=== PATIENT | female | born 1940 | race Caucasian/White ===

== ENCOUNTER 2018-01-06 20:43 | Inpatient (IN) ==
[2018-01-06] MEDS ORDERED: 0.9 % SODIUM CHLORIDE 1,000 ML IV ONE (21:46)
[2018-01-06] MEDS ORDERED: DICYCLOMINE 20 MG TABLET PO ONE (22:12)
[2018-01-06] MEDS ORDERED: LACTATED RINGERS 1,000 ML IV ONE (22:23)
[2018-01-06 22:35] LABS: Basophils # (Auto) 0.2 K/mcL (0.0-0.3); Basophils % (Auto) 1.4 % (0.0-2.0); Eosinophils # (Auto) 0.2 K/mcL (0.0-0.7); Granulocytes % (Auto) 75.2 % (38.0-78.0); Lymphocytes # (Auto) 1.9 K/mcL (1.5-4.8); Mean Cell Volume 81.9 fL (80.0-100.0); Mean Corpuscular HGB Conc 32.1 g/dL (31.0-36.0); Mean Corpuscular Hemoglobin 26.3 pg (26.0-34.0); Monocytes # (Auto) 0.6 K/mcL (0.1-0.9); Monocytes % (Auto) 5.4 % (1.0-12.0); Platelet Count 337 K/mcL (140-440); RBC 5.06 M/mcL (4.00-5.20); Red Cell Distribution Width 14.3 % (11.5-14.5)
[2018-01-06 23:02] LABS: ALT/SGPT 7 U/l (0-40); Albumin 3.5 gm/dL (3.2-5.2); Albumin/Globulin Ratio 0.9 (1.0-2.3); Alkaline Phosphatase 76 U/L (39-117); Blood Urea Nitrogen 24 mg/dl (8-23)
--- NOTE | 2018-01-06 23:34 | Emergency Department Note ---
Nausea/Vomiting/Diarrhea HPI - General Chief complaint: Nausea/Vomiting/Diarrhea Stated complaint: diarrhea Time Seen by Provider: 01/06/18 20:59 Source: patient Mode of arrival: wheelchair Limitations: no limitations - History of Present Illness HPI Narrative: 77-year-old female comes in for diarrhea for the last week. Now for the last 2- 3 days is gotten worse having 3-5 episodes per day of watery stool. She was seen [address] russ here in the ER and tested for C. difficile which she has had 4 times in the past. Testing was negative but he placed her on vancomycin anyway because of her symptoms still sound like C. difficile. She is having diffuse abdominal pain and cramping with that. She is having difficulty staying hydrated. Last antibiotics were for diverticulitis episode and were finished about 10 days ago. She saw Dr. Siddharth Pennington 2 days ago when he advised to take dicyclomine for the cramping-this does help but the cramps come back when she stopped taking this medicine. Some nausea decreased appetite but no fever. Denies shortness of breath - Related Data Home Medications Medication Instructions Recorded Confirmed Ascorbate Calcium [Vitamin C] 500 mg PO DAILY 02/28/17 01/06/18 Gabapentin [Neurontin] 200 mg PO QHS 02/28/17 01/06/18 Meclizine HCl [Verticalm] 12.5 mg PO QIDP PRN 02/28/17 01/06/18 Venlafaxine [Effexor] 75 mg PO QHS 02/28/17 01/06/18 Verapamil HCl 80 mg PO DAILY 02/28/17 01/06/18 Omeprazole [PriLOSEC] 20 mg PO BIDAC 06/17/17 01/06/18 aspirin 81 mg tablet,delayed 81 mg PO QDAY 11/11/17 01/06/18 release [id number] See Label Instructions PO Q6H PRN 11/11/17 cholecalciferol (vitamin D3) 5,000 5,000 unit PO QDAY 11/11/17 01/06/18 unit capsule famotidine 20 mg tablet 20 mg PO QDAY 11/11/17 01/06/18 ferrous sulfate 325 mg (65 mg 325 mg PO QDAY tab 11/11/17 01/06/18 iron) tablet hydrocodone 10 mg-acetaminophen 1 tab PO .Q4-6H tab 11/11/17 01/06/18 325 mg tablet lecithin 1,200 mg capsule 1,200 mg PO BID cap 11/11/17 01/06/18 multivitamin with minerals 1 cap PO BID 11/11/17 01/06/18 omega 4-uvf-qqt-fish oil 1,000 mg 3 cap PO QDAY cap 11/11/17 01/06/18 (120 mg-180 mg) capsule omega-3 fatty acids-fish oil 1 cap PO QDAY 11/11/17 01/06/18 polyethylene glycol 3350 17 g PO QAM 11/11/17 01/06/18 propranolol ER 60 mg capsule,24 60 mg PO QDAY 11/11/17 01/06/18 hr,extended release pseudoephedrine HCl PO QDAY PRN 11/11/17 01/04/18 sucralfate 1 gram tablet 1 g PO QDAY tab 11/11/17 01/06/18 topiramate 200 mg tablet 100 mg PO BID 11/11/17 01/06/18 zoledronic nhfm-hbdpxzdu-nvdba IV .Annually 11/11/17 01/04/18 bismuth subsalicylate 1 dose PO ONCE PRN 12/21/17 01/06/18 imodium 4 mg PO ONCE PRN 12/21/17 01/06/18 Previous Rx's Medication Instructions Recorded Isosorbide Mononitrate [Imdur] 30 mg PO DAILY #30 tab.xl.24h 02/28/17 Nitroglycerin 0.4 mg SL Q5M PRN #25 tab.subl 02/28/17 hydrocortisone 2.5 % topical cream 1 applic MD QD-BID PRN #30 g 11/26/17 with perineal applicator ciprofloxacin 500 mg tablet 500 mg PO Q12H #30 tab 12/02/17 metronidazole 500 mg tablet 500 mg PO TID #40 tab 12/02/17 Banana Flakes/Tos [Banatrol Plus 1 each PO TID #90 powd.pack 01/02/18 Powder Packet] Vancomycin [Vancocin] 125 mg PO QID #90 cap 01/02/18 dicyclomine 20 mg tablet 20 mg PO QID #120 tab 01/06/18 Allergies Allergy/AdvReac Type Severity Reaction Status Date / Time ibuprofen Allergy Severe Unknown Verified 01/04/18 10:20 Latex, Natural Rubber Allergy Severe Rash Verified 01/04/18 10:20 Oxycodone Allergy Severe Unknown Verified 01/04/18 10:20 Penicillins Allergy Severe Hives Verified 01/04/18 10:20 adhesive tape Allergy Intermediate Rash Verified 01/04/18 10:20 codeine Allergy Intermediate Hives Verified 01/04/18 10:20 Sulfa (Sulfonamide Allergy Intermediate Hives Verified 01/04/18 10:20 Antibiotics) topiramate AdvReac Intermediate Seizure Verified 01/04/18 10:20 Review of Systems All systems ED: reviewed and negative except as stated. Past Medical History - Past Medical History Attestation: Yes: The following information was validated with the patient. [facility] Narrative: Medical History (Last Reviewed 01/06/18 @ 11:45 by Siddharth Pennington MD) Bilateral lower abdominal pain (Chronic) Iron deficiency anemia (Chronic) Pulmonary hypertension (Chronic) Terminal esophageal web (Chronic) Carotid artery stenosis (Chronic) Diarrhea (Chronic) Lower abdominal pain (Chronic) Wears dentures (Chronic) Microcytic anemia (Chronic) Wears glasses (Chronic) Diverticulosis of duodenum (Chronic) Acquired pyloric stricture (Chronic) Central chest pain (Chronic) Macular degeneration, bilateral (Chronic) Aneurysm of infrarenal abdominal aorta (Chronic) Coronary arteriosclerosis (Chronic) Seroma after procedure (Chronic) Acute kidney injury (Chronic) History of fracture of right ankle (Chronic ~2010) Chronic sinusitis (Chronic) Squamous cell carcinoma of chin (Chronic) Onychomycosis (Chronic) Other specified malignant neoplasm of skin of unspecified parts of face (Chronic ) Macular degeneration (Chronic) GERD (gastroesophageal reflux disease) (Chronic) Urge incontinence (Chronic) Subdural hemorrhage (Chronic) Acquired spondylolisthesis (Chronic) Depression (Chronic) Fatigue (Chronic) Essential tremor (Chronic) Sleep apnea (Chronic) Internal hemorrhoids (Chronic) Vertigo (Chronic) Dry skin (Chronic) Peripheral edema (Chronic) Other chronic sinusitis (Chronic) Rectal bleeding (Chronic) Migraine headache (Chronic) Cholangiectasis (Chronic) Anxiety (Chronic) Diverticulosis of colon without diverticulitis (Chronic) Schatzki's ring (Chronic) Pleurisy (Chronic) Osteoporosis (Chronic) Unspecified hereditary and idiopathic peripheral neuropathy (Chronic) Cervico-occipital neuralgia (Chronic) Chronic pain (Chronic) Chronic back pain (Chronic) Chronic neck pain (Chronic) Drug-induced constipation (Chronic) MCFP (current) use of opiate analgesic (Chronic) Alteration in comfort associated with pain (Chronic) Hypothyroidism (Chronic) Hyperlipidemia (Chronic) terminal gauger (current) use of aspirin (Chronic) Atrial fibrillation (Chronic) Abdominal aortic aneurysm without rupture (Chronic) Breast lump (Chronic) History of rheumatic fever (Chronic) History of lumbar fusion (Chronic) Rhinitis, allergic (Acute) Pharyngitis (Acute) Hip pain (Acute) Acute sinusitis (Acute) Chest pain of uncertain etiology (Acute) Left bundle branch block (LBBB) (Acute) Upper respiratory infection (Acute) Colitis due to Clostridium difficile (Acute) Bite by animal (Acute) Hemorrhoids (Acute) Lower gastrointestinal hemorrhage (Acute) Hypokalemia (Acute) Past Surgical History (Last Reviewed 01/06/18 @ 11:45 by Siddharth Pennington MD) History of appendectomy (Chronic) History of back surgery (Chronic 05/04/17) History of cataract surgery (Chronic) History of cholecystectomy (Chronic) History of colonoscopy (Chronic 01/12/15) History of lumbar discectomy (Chronic) History of nasal surgery (Chronic) History of open reduction and internal fixation (ORIF) procedure (Chronic ~2011) History of orthopedic surgery (Chronic ~2010) History of partial hysterectomy (Chronic) History of squamous cell carcinoma excision (Chronic ~2010) History of tonsillectomy and adenoidectomy (Chronic) Social History (Last Updated 01/06/18 @ 11:54 by Siddharth Pennington MD) No Social History Section defined Medical history: Reports: atrial fibrillation (paroxysmal - postop 2013 after hip replacement (single episode)), GERD, hypertension, migraine (chronic), thyroid disease, other (BRADYCARDIA (50-52); essential tremor. esophageal stricture, hemorrhoids, diverticulosis; abnl NM Myocard Perfusion (Spect) [facility] . AAA 3.[address] November 2016 Lina. Asymmetric BP R>L. Carotid art disease. C. difficile colitis recurrent Jun 2017.). Denies: cancer, coronary artery disease, DM, myocardial infarction Psychiatric history: Reports: depression BAR EXAMINER history: Reports: non-contributory Surgical history ED: Reports: other (Carpal tunnel syndrome on the left. Left hip surgery 2. back surgery x2) - Social History smoking status: Never smoker Alcohol use: Reports: None Drug use: Reports: none Physical Exam Fragile elderly female some acute distress secondary to abdominal cramping. Appears globally weak. At one point during exam she has to go the bathroom. Normocephalic atraumatic. Conjunctive are clear sclerae nonicteric. No nasal discharge or congestion. Oropharynx is with dry buccal mucosa. Posterior pharynx is clear. Neck is supple without lymphadenopathy thyromegaly or carotid bruit. Heart is regular rate and rhythm no murmur appreciated. Lungs are clear to auscultation bilaterally without wheezes rales rhonchi or respiratory distress. Abdomen is diffusely tender with loud bowel sounds. Some guarding. She is wearing hose so I do not see any edema. +2 radial pulse. She is somnolent but easily arousable able answer questions appropriately and cooperate for physical exam Limitations: no limitations Course Vital Signs Temperature 96.6 F L 01/06/18 20:44 Pulse Rate 82 01/06/18 20:44 Respiratory Rate 19 01/06/18 20:44 Blood Pressure 115/75 01/06/18 20:44 Pulse Oximetry (%) 96 01/06/18 20:44 Temperature 97.8 F 01/07/18 04:00 Pulse Rate 60 01/07/18 04:00 Respiratory Rate 20 01/07/18 04:00 Blood Pressure 120/48 01/07/18 04:00 Pulse Oximetry (%) 93 01/07/18 04:00 Nausea/Vomiting/Diarrhea - Lab Data Lab results reviewed: Yes I reviewed the patient's lab results. Result diagrams: 01/06/18 22:00 01/06/18 22:00 Lab Results 01/06/18 01/06/18 Range/Units 22:00 22:00 WBC 11.9 H (4.5-11.0) K/mcL RBC 5.06 (4.00-5.20) M/mcL Hgb 13.3 (12.0-15.0) g/dL Hct 41.4 (36.0-48.0) % MCV 81.9 (80.0-100.0) fL MCH 26.3 (26.0-34.0) pg MCHC 32.1 (31.0-36.0) g/dL RDW 14.3 (11.5-14.5) % Plt Count 337 (140-440) K/mcL MPV 9.6 (7.4-10.4) fL Gran % 75.2 (38.0-78.0) % Lymph % (Auto) 16.0 (15.5-49.0) % Page % (Auto) 5.4 (1.0-12.0) % Eos % (Auto) 2.0 (0.0-7.0) % Baso % (Auto) 1.4 (0.0-2.0) % Gran # 9.0 H (1.8-8.0) K/mcL Lymph # (Auto) 1.9 (1.5-4.8) K/mcL Page # (Auto) 0.6 (0.1-0.9) K/mcL Eos # (Auto) 0.2 (0.0-0.7) K/mcL Baso # (Auto) 0.2 (0.0-0.3) K/mcL Differential Comment Sodium 138 (133-145) mmol/L Potassium 3.3 (3.3-5.1) mmol/L Chloride 101 (96-108) mmol/L Carbon Dioxide 18 L (22-30) mmol/L Anion Gap 19.0 H (8-16) BUN 24 H (8-23) mg/dl Creatinine 1.5 H (0.6-1.1) mg/dl GFR Calculation 34 Glucose 99 (70-105) mg/dL Calcium 9.2 (8.6-10.4) mg/dl Total Bilirubin 0.2 (0.0-1.0) mg/dL AST 11 (0-37) U/l ALT 7 (0-40) U/l Alkaline Phosphatase 76 (39-117) U/L Total Protein 7.2 (5.9-8.4) gm/dL Albumin 3.5 (3.2-5.2) gm/dL Globulin 3.7 (2.2-3.7) gm/dL Albumin/Globulin Ratio 0.9 L (1.0-2.3) Disposition Pt seen by PULLEY MORTISER OPERATOR/PA only: No Clinical Impression: Clostridium difficile infection, Dehydration, Acute kidney injury Hypotension Qualifiers: Hypotension type: hypotension due to hypovolemia Qualified Code(s): I95.89 - Other hypotension Summary: After initial interview and exam I ordered laboratory. I did not order repeat scan of the belly or other imaging because she is had a recent abdominal CT which showed evidence of colitis on 01/01/2018 or 5 days ago. Further questioning it does not sound like she is picked up the vancomycin ordered by Dr. russ yet. She received Zofran and IV fluids C. difficile testing was positive this time which correlates with her CT scan from 5 days ago. She was mildly hypotensive, which responded to fluids and had acute kidney injury likely prerenal on laboratory. In light of these findings I think she needs to come in the hospital. Discussed case with Dr. Arrington the hospitalist who accepted the patient and who advised me to start 500 mg of vancomycin p.o. I wrote holding orders per his recommendations Disposition: Xfer As Inpt ([facility]) Condition: Fair
[2018-01-06] MEDS ORDERED: LACTATED RINGERS 1,000 ML IV SCH (23:45)
[2018-01-06] MEDS ORDERED: ACETAMINOPHEN 325 MG TABLET PO PRN (23:46)
[2018-01-06] MEDS ORDERED: ACETAMINOPHEN W/CODEINE #3 1 TABLET PO PRN (23:46)
[2018-01-06] MEDS ORDERED: ONDANSETRON 4 MG/2 ML VIAL IV PRN (23:46)
[2018-01-07] MEDS: VANCOMYCIN 250 MG CAPSULE PO SCH ×2 (00:15→13:13)
[2018-01-07] MEDS ORDERED: LACTATED RINGERS 1,000 ML IV SCH (01:18)
--- NOTE | 2018-01-07 01:21 | Internal Med History&Physical ---
Medical - H&P: [facility] Patient information: Note initiated : 01/07/18 at 1:19 am Service Date, if different from initiated Date: [] Patient: Michael Hammond 77 y/o F admitted on 01/07/18 for diarrhea. Chief Complaint: [] Chief complaint: Dirrhea History of present illness: Ms. Hammond is a 77 year old F s/p treatment for recent flare of diverticulitis and completed 2 weeks antibiotics. She subsequently developed over last few days and followed up with surgery as outpatient 2 days ago.. She was started on dicyclomine by surgery however her symptoms continued to worsen and presents to the ER. During the initial visit she was diagnosed with Cdif ,discharged on oral vancomycin. However for reasons unclear patient did not take oral vancomycin and her symptoms continued to worsen with profuse diarrhea and weakness. She now presents to the ER second time with watery dirrhea, weakness fatigue , exhaustion and hypotension. He denied associated fever or abdominal pain. Initial W/u in ED positive for C Diff white count 11.9, Started on crystalloids and vancomycin PO. Hospitalist service was consulted. At the time of evaluation patient is very lethargic and feels wiped out. She was able to provide history as above. Medical - H&P: H Medical history: Medical History (Last Reviewed 01/06/18 @ 11:45 by Isaiah Pennington MD) Bilateral lower abdominal pain (Chronic) Iron deficiency anemia (Chronic) Pulmonary hypertension (Chronic) Terminal esophageal web (Chronic) Carotid artery stenosis (Chronic) Diarrhea (Chronic) Lower abdominal pain (Chronic) Wears dentures (Chronic) Microcytic anemia (Chronic) Wears glasses (Chronic) Diverticulosis of duodenum (Chronic) Acquired pyloric stricture (Chronic) Central chest pain (Chronic) Macular degeneration, bilateral (Chronic) Aneurysm of infrarenal abdominal aorta (Chronic) Coronary arteriosclerosis (Chronic) Seroma after procedure (Chronic) Acute kidney injury (Chronic) History of fracture of right ankle (Chronic ~2010) Chronic sinusitis (Chronic) Squamous cell carcinoma of chin (Chronic) Onychomycosis (Chronic) Other specified malignant neoplasm of skin of unspecified parts of face (Chronic ) Macular degeneration (Chronic) GERD (gastroesophageal reflux disease) (Chronic) Urge incontinence (Chronic) Subdural hemorrhage (Chronic) Acquired spondylolisthesis (Chronic) Depression (Chronic) Fatigue (Chronic) Essential tremor (Chronic) Sleep apnea (Chronic) Internal hemorrhoids (Chronic) Vertigo (Chronic) Dry skin (Chronic) Peripheral edema (Chronic) Other chronic sinusitis (Chronic) Rectal bleeding (Chronic) Migraine headache (Chronic) Cholangiectasis (Chronic) Anxiety (Chronic) Diverticulosis of colon without diverticulitis (Chronic) Schatzki's ring (Chronic) Pleurisy (Chronic) Osteoporosis (Chronic) Unspecified hereditary and idiopathic peripheral neuropathy (Chronic) Cervico-occipital neuralgia (Chronic) Chronic pain (Chronic) Chronic back pain (Chronic) Chronic neck pain (Chronic) Drug-induced constipation (Chronic) snf (current) use of opiate analgesic (Chronic) Alteration in comfort associated with pain (Chronic) Hypothyroidism (Chronic) Hyperlipidemia (Chronic) snf (current) use of aspirin (Chronic) Atrial fibrillation (Chronic) Abdominal aortic aneurysm without rupture (Chronic) Breast lump (Chronic) History of rheumatic fever (Chronic) History of lumbar fusion (Chronic) Rhinitis, allergic (Acute) Pharyngitis (Acute) Hip pain (Acute) Acute sinusitis (Acute) Chest pain of uncertain etiology (Acute) Left bundle branch block (LBBB) (Acute) Upper respiratory infection (Acute) Colitis due to Clostridium difficile (Acute) Bite by animal (Acute) Hemorrhoids (Acute) Lower gastrointestinal hemorrhage (Acute) Hypokalemia (Acute) Surgical history: Past Surgical History (Last Reviewed 01/06/18 @ 11:45 by Isaiah Pennington MD) History of appendectomy (Chronic) History of back surgery (Chronic 05/04/17) History of cataract surgery (Chronic) History of cholecystectomy (Chronic) History of colonoscopy (Chronic 01/12/15) History of lumbar discectomy (Chronic) History of nasal surgery (Chronic) History of open reduction and internal fixation (ORIF) procedure (Chronic ~2011) History of orthopedic surgery (Chronic ~2010) History of partial hysterectomy (Chronic) History of squamous cell carcinoma excision (Chronic ~2010) History of tonsillectomy and adenoidectomy (Chronic) Pertinent family history: Mother Heart disease , Onset Age: 87 Stroke Cancer Father Heart disease , Onset Age: 85 Sister Ovarian cancer Breast cancer Heart disease Unknown Breast cancer Colon cancer Social history: marital status: occupational status: retired sexually active: No other: Children-4 physical activity: other smoking status: Never smoker alcohol intake frequency: does not drink substance use type: does not use working smoke detector in home: Yes Medical - H&P: Meds Home Medications Medication Instructions Recorded Confirmed Type Ascorbate Calcium [Vitamin C] 500 mg PO DAILY 02/28/17 01/06/18 History Gabapentin [Neurontin] 200 mg PO QHS 02/28/17 01/06/18 History Isosorbide Mononitrate [Imdur] 30 mg PO DAILY #30 tab.xl.24h 02/28/17 01/06/18 Rx Meclizine HCl [Verticalm] 12.5 mg PO QIDP PRN 02/28/17 01/06/18 History Nitroglycerin 0.4 mg SL Q5M PRN #25 tab.subl 02/28/17 01/06/18 Rx Venlafaxine [Effexor] 75 mg PO QHS 02/28/17 01/06/18 History Verapamil HCl 80 mg PO DAILY 02/28/17 01/06/18 History Omeprazole [PriLOSEC] 20 mg PO BIDAC 06/17/17 01/06/18 History aspirin 81 mg tablet,delayed 81 mg PO QDAY 11/11/17 01/06/18 History release [id number]-vclgtzdjxudyl-vpqxyzzn See Label Instructions PO Q6H PRN 11/11/17 History cholecalciferol (vitamin D3) 5,000 5,000 unit PO QDAY 11/11/17 01/06/18 History unit capsule famotidine 20 mg tablet 20 mg PO QDAY 11/11/17 01/06/18 History ferrous sulfate 325 mg (65 mg 325 mg PO QDAY tab 11/11/17 01/06/18 History iron) tablet hydrocodone 10 mg-acetaminophen 1 tab PO .Q4-6H tab 11/11/17 01/06/18 History 325 mg tablet lecithin 1,200 mg capsule 1,200 mg PO BID cap 11/11/17 01/06/18 History multivitamin with minerals 1 cap PO BID 11/11/17 01/06/18 History omega 9-fxj-jwr-fish oil 1,000 mg 3 cap PO QDAY cap 11/11/17 01/06/18 History (120 mg-180 mg) capsule omega-3 fatty acids-fish oil 1 cap PO QDAY 11/11/17 01/06/18 History polyethylene glycol 3350 17 g PO QAM 11/11/17 01/06/18 History propranolol ER 60 mg capsule,24 60 mg PO QDAY 11/11/17 01/06/18 History hr,extended release pseudoephedrine HCl PO QDAY PRN 11/11/17 01/04/18 History sucralfate 1 gram tablet 1 g PO QDAY tab 11/11/17 01/06/18 History topiramate 200 mg tablet 100 mg PO BID 11/11/17 01/06/18 History zoledronic kxut-nzygyxdd-ubnji IV .Annually 11/11/17 01/04/18 History hydrocortisone 2.5 % topical cream 1 applic [place] QD-BID PRN #30 g 11/26/17 Rx with perineal applicator ciprofloxacin 500 mg tablet 500 mg PO Q12H #30 tab 12/02/17 01/06/18 Rx metronidazole 500 mg tablet 500 mg PO TID #40 tab 12/02/17 01/06/18 Rx bismuth subsalicylate 1 dose PO ONCE PRN 12/21/17 01/06/18 History imodium 4 mg PO ONCE PRN 12/21/17 01/06/18 History Banana Flakes/Tos [Banatrol Plus 1 each PO TID #90 powd.pack 01/02/18 01/06/18 Rx Powder Packet] Vancomycin [Vancocin] 125 mg PO QID #90 cap 01/02/18 01/06/18 Rx dicyclomine 20 mg tablet 20 mg PO QID #120 tab 01/06/18 01/06/18 Rx Allergies Allergy/AdvReac Type Severity Reaction Status Date / Time ibuprofen Allergy Severe Unknown Verified 01/04/18 10:20 Latex, Natural Rubber Allergy Severe Rash Verified 01/04/18 10:20 Oxycodone Allergy Severe Unknown Verified 01/04/18 10:20 Penicillins Allergy Severe Hives Verified 01/04/18 10:20 adhesive tape Allergy Intermediate Rash Verified 01/04/18 10:20 codeine Allergy Intermediate Hives Verified 01/04/18 10:20 Sulfa (Sulfonamide Allergy Intermediate Hives Verified 01/04/18 10:20 Antibiotics) topiramate AdvReac Intermediate Seizure Verified 01/04/18 10:20 Medical - H&P: Exam - Constitutional Vitals: Temp Pulse Resp BP Pulse Ox 96.6 F L 61 19 131/64 97 01/06/18 20:44 01/06/18 23:46 01/06/18 20:44 01/06/18 23:46 01/06/18 23:46 General appearance: moderate distress Exam: Pupils symmetric Oral cavity dry no ear or nose discharge Head normocephalic Neck no lymphadenopathy S1 and S2 regular rhythm tachycardia Diminished breath sounds bases Abdomen soft Lower extremity no cyanosis clubbing or joint swelling Skin no suspicious lesion Psychiatric anxious but alert Neuro nonfocal Medical - H&P: Reslt - Labs CBC & Chem 7: 01/06/18 22:00 01/06/18 22:00 Labs: Short CBC 01/06/18 Range/Units 22:00 WBC 11.9 H (4.5-11.0) K/mcL Hgb 13.3 (12.0-15.0) g/dL Hct 41.4 (36.0-48.0) % Plt Count 337 (140-440) K/mcL BMP 01/06/18 22:00 Sodium 138 Potassium 3.3 Chloride 101 Carbon Dioxide 18 L BUN 24 H Creatinine 1.5 H Glucose 99 Calcium 9.2 Liver Function 01/06/18 Range/Units 22:00 Total Bilirubin 0.2 (0.0-1.0) mg/dL AST 11 (0-37) U/l ALT 7 (0-40) U/l Alkaline Phosphatase 76 (39-117) U/L Albumin 3.5 (3.2-5.2) gm/dL Medical - H&P: A/P (1) Clostridium difficile infection Current visit: Yes Status: Acute * Recurrent C Diff dirrhea-oral vancomycin. * Hypotension secondary to volume depletion from persistent diarrhea- Start IV crystalloids * TIMOTHY secondary to volume depletion-continue crystalloids and monitor renal function * Recent diverticulitis- S/p abx treatment. Followed up by surgery as OP * Neuropathy on gabapentin * Chronic pain on hydrocodone * Anxiety disorder on venlafaxine/propranolol * Full code * Prophylaxis heparin Plan * Oral vancomycin * Crystalloids * Pre-existing medical condition management as above * Inpatient admission
[2018-01-07] MEDS ORDERED: VANCOMYCIN 125 MG CAPSULE PO SCH (09:00)
[2018-01-07 10:10] LABS: Basophils # (Auto) 0 K/mcL (0.0-0.3); Basophils % (Auto) 0.1 % (0.0-2.0); Eosinophils # (Auto) 0.2 K/mcL (0.0-0.7); Eosinophils % (Auto) 1.1 % (0.0-7.0); Granulocytes % (Auto) 80.1 % (38.0-78.0); Lymphocytes # (Auto) 2.1 K/mcL (1.5-4.8); Lymphocytes % (Auto) 14.1 % (15.5-49.0); Mean Cell Volume 82.6 fL (80.0-100.0); Mean Corpuscular HGB Conc 32.2 g/dL (31.0-36.0); Mean Corpuscular Hemoglobin 26.6 pg (26.0-34.0); Monocytes # (Auto) 0.7 K/mcL (0.1-0.9); Monocytes % (Auto) 4.6 % (1.0-12.0); Platelet Count 292 K/mcL (140-440); RBC 4.38 M/mcL (4.00-5.20); Red Cell Distribution Width 14.7 % (11.5-14.5)
[2018-01-07 10:39] LABS: ALT/SGPT 6 U/l (0-40); Albumin 2.8 gm/dL (3.2-5.2); Albumin/Globulin Ratio 0.9 (1.0-2.3); Alkaline Phosphatase 62 U/L (39-117); Bilirubin,Direct < 0.2 mg/dL (0.0-0.3); Blood Urea Nitrogen 21 mg/dl (8-23); Gamma Glutamyl Transpeptidase 27 U/L (5-36); Uric Acid 8.4 mg/dL (2.5-8.0)
[2018-01-07] MEDS ORDERED: POTASSIUM CHLORIDE 40 MEQ in DEXTROSE 5% IN WATER 500 ML IV ONE (10:54)
[2018-01-07] MEDS ORDERED: MAGNESIUM SULFATE 2 GM/50 ML BAG IV ONE (10:54)
[2018-01-07] MEDS ORDERED: POTASSIUM CHLORIDE 20 MEQ PACKET PO ONE (10:54)
[2018-01-07] MEDS ORDERED: MECLIZINE 25 MG TABLET PO PRN (12:33)
[2018-01-07] MEDS: TOPIRAMATE 100 MG TABLET PO SCH ×2 (12:39→21:58)
[2018-01-07] MEDS: HYDROcodone/APAP 10/325MG TABLET PO PRN (12:41)
[2018-01-07] MEDS: OMEPRAZOLE 20 MG CAPSULE PO SCH ×2 (12:41→17:31)
[2018-01-07] MEDS: DICYCLOMINE 20 MG TABLET PO SCH ×3 (14:28→21:57)
[2018-01-07] MEDS: VANCOMYCIN ORAL SOL 1,000 MG/10 ML BOTTLE PO SCH ×3 (14:29→22:25)
--- NOTE | 2018-01-07 16:15 | Internal Med Progress Note ---
Medical - PN: Subj Patient information: Note initiated : 01/07/18 at 4:08 pm Service Date, if different from initiated Date: [] Patient: Michael Hammond 77 y/o F admitted on 01/07/18 for diarrhea. Chief Complaint: [] Interval history: Ms. Hammond is a 77 year old F s/p treatment for recent flare of diverticulitis and completed 2 weeks antibiotics. She subsequently developed over last few days and followed up with surgery as outpatient 2 days ago.. She was started on dicyclomine by surgery however her symptoms continued to worsen and presents to the ER. During the initial visit she was diagnosed with Cdif ,discharged on oral vancomycin. However for reasons unclear patient did not take oral vancomycin and her symptoms continued to worsen with profuse diarrhea and weakness. She now presents to the ER second time with watery dirrhea, weakness fatigue , exhaustion and hypotension. He denied associated fever or abdominal pain. Initial W/u in ED positive for C Diff white count 11.9, Started on crystalloids and vancomycin PO. Hospitalist service was consulted. At the time of evaluation patient is very lethargic and feels wiped out. She was able to provide history as above. 01/07 Pt seen examined, no acute overnigth issues, K low this am to be replaced still having diarrhea, anxious about her kidneys, concerned vancomycin will cause kidney damage, educated that oral vancdomycin is not absorbed Patient also notes had bronchitis few days ago, and this is her 5th episode of Cdiff this year? She has abdominal cramping, which is unchanged since yesterday. Pertinent ROS: Denies headache, dizziness Denies chest pain, palpitations Denies cough or shortness of breath prsent abdominal pain, no nausea or vomiting. - Constitutional Vitals: Vital Signs Temp Pulse Resp BP Pulse Ox 97.2 F 64 18 122/63 96 01/07/18 12:00 01/07/18 12:00 01/07/18 12:00 01/07/18 12:00 01/07/18 12:00 Period Temp Pulse Resp BP Sys/Underwood Pulse Ox Last 24 Hr 96.6 F-97.8 F 59-82 18-20 88-135/48-80 93-97 Intake and Output 01/07/18 01/07/18 01/07/18 05:59 13:59 21:59 Intake Total 1400 / 1400 1410 / 1410 480 / 480 Output Total 50 / 50 Balance 1400 / 1400 1360 / 1360 480 / 480 Weight 165 lb Intake & Output: Intake & Output 01/07/18 01/07/18 01/07/18 05:59 13:59 21:59 Intake Total 1400 / 1400 1410 / 1410 480 / 480 Output Total 50 / 50 Balance 1400 / 1400 1360 / 1360 480 / 480 Weight 165 lb Intake: IV 1000 / 1000 1050 / 1050 Sodium Chloride 0.9% 1,000 ml @ 1000 / 1000 Wide Open IV BOLUS ONE Rx#: [id number] Oral 400 / 400 360 / 360 480 / 480 Output: Stool 50 / 50 Other: Meal Breakfast Percent of Meal Consumed 25% Stool Color Brown Brown Stool Consistency Liquid Loose # Voids 1 1 # Bowel Movements 1 1 1 Exam: Constitutional; Afebrile, cooperative, alert, not in distress. Eyes- No icterus, , No periorbital swelling Ears- Ext ear normal, hearing normal to conversation. Neck- Midline trachea, supple Respiratory system: Air Entry equal on both sides, No crackles or wheezing, no rhonchi. CVS- Rate rhythm regular, S1,S2 heard, no gallop, no rub. 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 Medical - PN: Obj Da - Labs CBC & Chem 7: 01/07/18 09:25 01/07/18 09:25 Labs: Abnormal Lab Results 01/07/18 01/07/18 01/06/18 09:25 09:25 22:00 WBC 14.6 H Hgb 11.7 L RDW 14.7 H Gran % 80.1 H Lymph % (Auto) 14.1 L Gran # 11.7 H Potassium 2.8 L* Carbon Dioxide 18 L Anion Gap 19.0 H BUN 24 H Creatinine 1.5 H Uric Acid 8.4 H Calcium 8.2 L Albumin 2.8 L Albumin/Globulin Ratio 0.9 L 0.9 L 01/06/18 22:00 WBC 11.9 H Hgb RDW Gran % Lymph % (Auto) Gran # 9.0 H Potassium Carbon Dioxide Anion Gap BUN Creatinine Uric Acid Calcium Albumin Albumin/Globulin Ratio Meds: Medications Hydrocodone Bitart/Acetaminophen ([place] 10/325mg) 1 tab PO Q4-6HP PRN PRN Reason: PAIN LEVEL 3-6 Last Admin: 01/07/18 12:41 Dose: 1 tab Ascorbic Acid (Vitamin C) 500 mg PO DAILY [facility] Aspirin (Aspirin) 81 mg PO BID [facility] Dicyclomine HCl (Dicyclomine) 20 mg PO QID [facility] Last Admin: 01/07/18 14:28 Dose: 20 mg Famotidine (Pepcid) 20 mg PO QDAY [facility] Fish Oil (Fish Oil) 1,000 mg PO DAILY [facility] Gabapentin (Neurontin) 300 mg PO QHS [facility] Isosorbide Mononitrate (Imdur) 30 mg PO DAILY [facility] Meclizine HCl (Antivert) 12.5 mg PO QIDP PRN PRN Reason: Nausea Omeprazole (Prilosec) 20 mg PO BIDAC [facility] Last Admin: 01/07/18 12:41 Dose: 20 mg Ondansetron HCl (Zofran) 4 mg IV Q4HP PRN PRN Reason: Nausea And Vomiting Propranolol HCl (Inderal La) 60 mg PO QDAY [facility] Topiramate (Topamax) 100 mg PO BID [facility] Last Admin: 01/07/18 12:39 Dose: Not Given Vancomycin HCl (Vancomycin Oral Shaye) 500 mg PO QID [facility] Last Admin: 01/07/18 14:29 Dose: 1 dose Verapamil HCl (Calan) 80 mg PO DAILY [facility] Vitamin D (Vitamin D3) 5,000 unit PO QDAY [facility] Medical - PN: A/P - Time Spent With Patient Total time spent is greater than 50% in coordination of care (as documented) at patient's floor/unit and/or counseling patient: - Narrative A/P Narrative: A/P 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 will consider GI referral if no improvement for stool transplant. Hypotension- bp stable now, resumed propranolol, TIMOTHY- renal function much better, creat 1.1, continue hydration' h/o recent bronchitis per pt- no complaints Neuropathy- on neurontin, continue same An xiety- on effexor, and propranolol Severe hypokalemia- replace K oral and IV Abdominal cramping- due to colitis, dicyclomine DVT hep sq Full code
[2018-01-07] MEDS ORDERED: OMEPRAZOLE 20 MG CAPSULE PO SCH (17:00)
[2018-01-07] MEDS ORDERED: TOPIRAMATE 100 MG PO SCH (21:00)
[2018-01-07] MEDS ORDERED: BENZOCAINE/MENTHOL 1 LOZENGE PO ONE (21:57)
[2018-01-07] MEDS: GABAPENTIN 300 MG CAPSULE PO SCH (21:57)
[2018-01-07] MEDS: ASPIRIN 81 MG TAB.CHEW PO SCH (21:57)
[2018-01-07] MEDS: VERAPAMIL PO SCH (22:28)
[2018-01-07] MEDS: HCL PO SCH (22:28)
[2018-01-08 05:29] LABS: Basophils # (Auto) 0.1 K/mcL (0.0-0.3); Basophils % (Auto) 0.4 % (0.0-2.0); Eosinophils # (Auto) 0.6 K/mcL (0.0-0.7); Eosinophils % (Auto) 3.8 % (0.0-7.0); Granulocytes % (Auto) 65.5 % (38.0-78.0); Lymphocytes # (Auto) 3.4 K/mcL (1.5-4.8); Lymphocytes % (Auto) 22.9 % (15.5-49.0); Mean Cell Volume 85.1 fL (80.0-100.0); Mean Corpuscular HGB Conc 31.9 g/dL (31.0-36.0); Mean Corpuscular Hemoglobin 27.1 pg (26.0-34.0); Monocytes # (Auto) 1.1 K/mcL (0.1-0.9); Monocytes % (Auto) 7.4 % (1.0-12.0); Platelet Count 287 K/mcL (140-440); RBC 4.14 M/mcL (4.00-5.20); Red Cell Distribution Width 14.9 % (11.5-14.5)
[2018-01-08 06:14] LABS: ALT/SGPT < 5 U/l (0-40); Albumin 2.7 gm/dL (3.2-5.2); Alkaline Phosphatase 75 U/L (39-117); Bilirubin,Direct < 0.2 mg/dL (0.0-0.3); Blood Urea Nitrogen 19 mg/dl (8-23); Gamma Glutamyl Transpeptidase 25 U/L (5-36); Uric Acid 7.8 mg/dL (2.5-8.0)
[2018-01-08] MEDS ORDERED: POTASSIUM CHLORIDE 20 MEQ PACKET PO ONE (07:45)
[2018-01-08] MEDS ORDERED: POTASSIUM PHOSPHATE 40 MEQ in DEXTROSE 5% IN WATER 500 ML IV ONE (07:45)
[2018-01-08] MEDS: ISOSORBIDE MONONITRATE 30 MG TAB.XL.24H PO SCH (09:25)
[2018-01-08] MEDS: VITAMIN D3 5,000 UNIT CAPSULE PO SCH (09:25)
[2018-01-08] MEDS: FAMOTIDINE 20 MG TABLET PO SCH (09:25)
[2018-01-08] MEDS: ASCORBIC ACID 500 MG TABLET PO SCH (09:25)
[2018-01-08] MEDS: PROPRANOLOL 60 MG CAP.XL.24H PO SCH (09:25)
[2018-01-08] MEDS: OMEPRAZOLE 20 MG CAPSULE PO SCH ×2 (09:25→16:50)
[2018-01-08] MEDS: FISH OIL 1,000 MG CAPSULE PO SCH (09:25)
[2018-01-08] MEDS: ASPIRIN 81 MG TAB.CHEW PO SCH ×2 (09:25→20:38)
[2018-01-08] MEDS: DICYCLOMINE 20 MG TABLET PO SCH ×4 (09:26→20:38)
[2018-01-08] MEDS: TOPIRAMATE 100 MG TABLET PO SCH ×2 (09:31→20:39)
[2018-01-08] MEDS: VANCOMYCIN ORAL SOL 1,000 MG/10 ML BOTTLE PO SCH ×4 (10:27→20:53)
[2018-01-08] MEDS: metroNIDAZOLE 500 MG/100 ML BAG IV SCH ×3 (10:50→23:00)
--- NOTE | 2018-01-08 11:28 | Internal Med Progress Note ---
Medical - PN: Subj Patient information: Note initiated : 01/08/18 at 11:20 am Service Date, if different from initiated Date: [] Patient: Michael Hammond a 77 y/o F admitted on 01/07/18 for diarrhea. Chief Complaint: [] Interval history: Ms. Hammond is a 77 year old F s/p treatment for recent flare of diverticulitis and completed 2 weeks antibiotics. She subsequently developed over last few days and followed up with surgery as outpatient 2 days ago.. She was started on dicyclomine by surgery however her symptoms continued to worsen and presents to the ER. During the initial visit she was diagnosed with Cdif ,discharged on oral vancomycin. However for reasons unclear patient did not take oral vancomycin and her symptoms continued to worsen with profuse diarrhea and weakness. She now presents to the ER second time with watery dirrhea, weakness fatigue , exhaustion and hypotension. He denied associated fever or abdominal pain. Initial W/u in ED positive for C Diff white count 11.9, Started on crystalloids and vancomycin PO. Hospitalist service was consulted. At the time of evaluation patient is very lethargic and feels wiped out. She was able to provide history as above. 01/07 Pt seen examined, no acute overnigth issues, K low this am to be replaced still having diarrhea, anxious about her kidneys, concerned vancomycin will cause kidney damage, educated that oral vancdomycin is not absorbed Patient also notes had bronchitis few days ago, and this is her 5th episode of Cdiff this year? She has abdominal cramping, which is unchanged since yesterday. 01/08 Pt seen examined, feels somewhat better, diarrhe episodes are better, and less frequent on po vanco and IV flagyl for cdiff wbc high , but creat is improved to 0.8 ua suggestive of UTI cultures not available yet, will hold off on treating same given we do not have sensitivity and are dealing with a difficult Cdiff infection ID consulted for management of recurrent CDiff Pt Cdiff results for this year 06/27/16- Cdiff PCR positive 07/24/17- Cdiff PCR positive 07/24/17- Stool cultures negative 08/11/17- Cdiff pcr negative 08/20/17 Cdiff pcr positive 01/01/18 Cdiff GDH negative 01/06/18- CDiff GDH positive Pertinent ROS: Denies headache, dizziness Denies chest pain, palpitations Denies cough or shortness of breath present abdominal pain, nausea or vomiting. - Constitutional Vitals: Vital Signs Temp Pulse Resp BP Pulse Ox 98.5 F 62 18 119/72 95 01/08/18 06:50 01/08/18 04:00 01/08/18 06:50 01/08/18 06:50 01/08/18 06:50 Period Temp Pulse Resp BP Sys/Underwood Pulse Ox Last 24 Hr 97.2 F-99 F 60-64 16-18 112-130/60-74 94-97 Intake and Output 01/07/18 01/08/18 01/08/18 21:59 05:59 13:59 Intake Total 480 / 480 250 / 250 Output Total 350 / 350 Balance 480 / 480 -100 / -100 Weight 163 lb 163 lb Patient Weight 01/09/18 05:59 Weight 163 lb Intake & Output: Intake & Output 01/07/18 01/08/18 01/08/18 21:59 05:59 13:59 Intake Total 480 / 480 250 / 250 Output Total 350 / 350 Balance 480 / 480 -100 / -100 Weight 163 lb 163 lb Intake: Oral 480 / 480 250 / 250 Output: Void Amount 350 / 350 Other: # Voids 1 # Bowel Movements 1 Exam: Constitutional; Afebrile, cooperative, alert, not in distress. Eyes- No icterus, , No periorbital swelling Ears- Ext ear normal, hearing normal to conversation. Neck- Midline trachea, supple Respiratory system: Air Entry equal on both sides, No crackles or wheezing, no rhonchi. CVS- Rate rhythm regular, S1,S2 heard, no gallop, no rub. 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 Medical - PN: Obj Da - Labs CBC & Chem 7: 01/08/18 03:45 01/08/18 03:45 Labs: Abnormal Lab Results 01/08/18 01/08/18 01/07/18 03:45 03:45 09:25 WBC 14.8 H Hgb 11.2 L Hct 35.2 L RDW 14.9 H Gran % Lymph % (Auto) Gran # 9.7 H [place] # (Auto) 1.1 H Potassium 3.1 L 2.8 L* Carbon Dioxide 21 L Anion Gap BUN Creatinine Uric Acid 8.4 H Calcium 8.3 L 8.2 L Phosphorus 1.8 L Total Protein 5.5 L Albumin 2.7 L 2.8 L Albumin/Globulin Ratio 0.9 L 01/07/18 01/06/18 01/06/18 09:25 22:00 22:00 WBC 14.6 H 11.9 H Hgb 11.7 L Hct RDW 14.7 H Gran % 80.1 H Lymph % (Auto) 14.1 L Gran # 11.7 H 9.0 H [place] # (Auto) Potassium Carbon Dioxide 18 L Anion Gap 19.0 H BUN 24 H Creatinine 1.5 H Uric Acid Calcium Phosphorus Total Protein Albumin Albumin/Globulin Ratio 0.9 L Meds: Medications Hydrocodone Bitart/Acetaminophen ([place] 10/325mg) 1 tab PO Q4-6HP PRN PRN Reason: PAIN LEVEL 3-6 Last Admin: 01/07/18 12:41 Dose: 1 tab Ascorbic Acid (Vitamin C) 500 mg PO DAILY [facility] Last Admin: 01/08/18 09:25 Dose: 500 mg Aspirin (Aspirin) 81 mg PO BID [facility] Last Admin: 01/08/18 09:25 Dose: 81 mg Dicyclomine HCl (Dicyclomine) 20 mg PO QID [facility] Last Admin: 01/08/18 09:26 Dose: 20 mg Famotidine (Pepcid) 20 mg PO QDAY [facility] Last Admin: 01/08/18 09:25 Dose: 20 mg Fish Oil (Fish Oil) 1,000 mg PO DAILY [facility] Last Admin: 01/08/18 09:25 Dose: 1,000 mg Gabapentin (Neurontin) 300 mg PO QHS [facility] Last Admin: 01/07/18 21:57 Dose: 300 mg Potassium Phosphate 40 meq/ (Dextrose) 509.0909 mls @ 127.273 mls/hr IV ONCE ONE Stop: 01/08/18 11:44 Last Admin: 01/08/18 09:25 Dose: 127.273 mls/hr Metronidazole (Flagyl) 500 mg in 100 mls @ 100 mls/hr IV Q8H [facility] Last Admin: 01/08/18 10:50 Dose: 100 mls/hr Isosorbide Mononitrate (Imdur) 30 mg PO DAILY [facility] Last Admin: 01/08/18 09:25 Dose: 30 mg Meclizine HCl (Antivert) 12.5 mg PO QIDP PRN PRN Reason: Nausea Omeprazole (Prilosec) 20 mg PO BIDAC [facility] Last Admin: 01/08/18 09:25 Dose: 20 mg Ondansetron HCl (Zofran) 4 mg IV Q4HP PRN PRN Reason: Nausea And Vomiting Verapamil Xl Hcl 80 (Mg Tablet) 1 dose PO HS [facility] Last Admin: 01/07/18 22:28 Dose: Not Given Propranolol HCl (Inderal La) 60 mg PO QDAY [facility] Last Admin: 01/08/18 09:25 Dose: 60 mg Throat Lozenges (Cepacol) 1 lozenge PO PRN PRN PRN Reason: Sore Throat Topiramate (Topamax) 100 mg PO BID [facility] Last Admin: 01/08/18 09:31 Dose: 100 mg Vancomycin HCl (Vancomycin Oral Shaye) 250 mg PO QID [facility] Last Admin: 01/08/18 10:27 Dose: 2.5 ml Vitamin D (Vitamin D3) 5,000 unit PO QDAY [facility] Last Admin: 01/08/18 09:25 Dose: 5,000 unit Medical - PN: A/P - Time Spent With Patient Total time spent is greater than 50% in coordination of care (as documented) at patient's floor/unit and/or counseling patient: - Narrative A/P Narrative: A/P 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 clearly has had multiple epidoses based on chart reveiw, but not 5th. ID consulted, if needed will get GI involved for Heidi transplant, clinically seems to be responding to vancomycin. Hypotension- bp stable now, resumed propranolol, TIMOTHY- renal function much better, creat 0.8, continue hydration' h/o recent diverticulitis chart reviewed, was been seen by Dr Pennington for same, on cipro flagyl it seems Neuropathy- on neurontin, continue same Anxiety- on effexor, and propranolol Severe hypokalemia- replace K oral and IV Abdominal cramping- due to colitis, dicyclomine DVT hep sq Full code
[2018-01-08] MEDS: HYDROcodone/APAP 10/325MG TABLET PO PRN ×2 (12:07→16:57)
--- NOTE | 2018-01-08 13:03 | Internal Medicine Consult Note ---
Medical - CN: HPI - Data of Consult Consult date: 01/08/18 Requesting Physician: Alberto Luke MD Primary Care Provider: Liyah Rey MD Family Provider: Rani Gardner - Consult Narrative Reason for consult: Recurrent C. difficile infection History of present illness: Ms. Hammond is a 77 year old F with complicated PMHx, pertinent for: - recurrent C. difficile infection (CDI), with positive testing [from Dr. Luke 's notes] as: 06/27/16- Cdiff PCR positive 07/24/17- Cdiff PCR positive 07/24/17- Stool cultures negative 08/11/17- Cdiff pcr negative 08/20/17 Cdiff pcr positive 01/01/18 Cdiff GDH negative 01/06/18- CDiff GDH positive Pt was admitted on 06 January with clinical complaints of watery diarrhea, fatigue for last 5 days, after finishing her antibiotic course. Of note, patient had seen general surgery in December for acute diverticulitis, for which she was prescribed a combination of ciprofloxacin and cefdnir, for a 10 day course. Patient denied any fever, chills but endorsed diffuse abdominal pain, cramping, feeling tired and difficulty staying hydrated. She saw Dr. Pennington 2 days ago before admission when she was prescribed oral dicyclomine. Also a CT scan of her abdomen was done around January 01 which showed evidence of colitis [described as generalized thickening of the wall of the entire colon] At admission, white cell count was 11.9 K with 75% neutrophils, creatinine of 1.5, albumin of 3.5. Patient was started on oral vancomycin and IV Flagyl by the admitting team. Patient's white cell count has has increased to 14.8 K today at 65% neutrophils. She continues to be afebrile with improvement in her symptoms. At time of visit she reports that her symptoms are overall better, diarrhea around 2-4 times today, abdominal pain also better than at admission. She was in agreement to receive a stool transplant as a part of recurrent C. difficile management. She also added that her symptoms of diarrhea started when she was taking antibiotics for her diverticulitis, she also took Imodium while she was having diarrhea but it did not get better. CC: Seth Rojo - Constitutional Constitutional: Present: fatigue, lethargy, malaise, weakness - Cardiovascular Cardiovascular: Present: as per HPI - Respiratory Respiratory: Present: as per HPI - Gastrointestinal Gastrointestinal: Present: abdominal pain, fecal incontinence, loose stools - Genitourinary Genitourinary: Present: as per HPI - Allergic/Immunologic Allergic/Immunologic: Present: as per HPI Medical - CN: PM Functional capacity: independent ambulation Smoking status: Never smoker Have you smoked in the last 12 months: No Drug use: none Alcohol use: none Medical - CN: Meds Home Medications Medication Instructions Recorded Confirmed Type Ascorbate Calcium [Vitamin C] 500 mg PO DAILY 02/28/17 01/07/18 History Gabapentin [Neurontin] 300 mg PO QHS 02/28/17 01/07/18 History Isosorbide Mononitrate [Imdur] 30 mg PO DAILY #30 tab.xl.24h 02/28/17 01/07/18 Rx Meclizine HCl [Verticalm] 12.5 mg PO QIDP PRN 02/28/17 01/07/18 History Verapamil HCl 80 mg PO DAILY 02/28/17 01/07/18 History Omeprazole [PriLOSEC] 20 mg PO BIDAC 06/17/17 01/07/18 History aspirin 81 mg tablet,delayed 81 mg PO BID 11/11/17 01/07/18 History release [id number]-[id number] See Label Instructions PO Q6H PRN 11/11/17 History cholecalciferol (vitamin D3) 5,000 5,000 unit PO QDAY 11/11/17 01/07/18 History unit capsule famotidine 20 mg tablet 20 mg PO QDAY 11/11/17 01/07/18 History ferrous sulfate 325 mg (65 mg 325 mg PO QDAY tab 11/11/17 01/07/18 History iron) tablet hydrocodone 10 mg-acetaminophen 1 tab PO .Q4-6H tab 11/11/17 01/07/18 History 325 mg tablet lecithin 1,200 mg capsule 1,200 mg PO BID cap 11/11/17 01/07/18 History multivitamin with minerals 1 cap PO BID 11/11/17 01/07/18 History omega 1-ypc-emb-fish oil 1,000 mg 3 cap PO QDAY cap 11/11/17 01/07/18 History (120 mg-180 mg) capsule omega-3 fatty acids-fish oil 1 cap PO QDAY 11/11/17 01/07/18 History polyethylene glycol 3350 17 g PO QAM 11/11/17 01/07/18 History propranolol ER 60 mg capsule,24 60 mg PO QDAY 11/11/17 01/07/18 History hr,extended release pseudoephedrine HCl PO QDAY PRN 11/11/17 01/04/18 History sucralfate 1 gram tablet 1 g PO QDAY tab 11/11/17 01/07/18 History topiramate 200 mg tablet 100 mg PO BID 11/11/17 01/07/18 History zoledronic pzjv-almncsgp-ieigu IV .Annually 11/11/17 01/04/18 History hydrocortisone 2.5 % topical cream 1 applic MN QD-BID PRN #30 g 11/26/17 Rx with perineal applicator metronidazole 500 mg tablet 500 mg PO TID #40 tab 12/02/17 01/07/18 Rx bismuth subsalicylate 1 dose PO ONCE PRN 12/21/17 01/07/18 History Banana Flakes/Tos [Banatrol Plus 1 each PO TID #90 powd.pack 01/02/18 01/07/18 Rx Powder Packet] Vancomycin [Vancocin] 125 mg PO QID #90 cap 01/02/18 01/07/18 Rx dicyclomine 20 mg tablet 20 mg PO QID #120 tab 01/06/18 01/07/18 Rx Allergies Allergy/AdvReac Type Severity Reaction Status Date / Time ibuprofen Allergy Severe Unknown Verified 01/04/18 10:20 Latex, Natural Rubber Allergy Severe Rash Verified 01/04/18 10:20 Oxycodone Allergy Severe Unknown Verified 01/04/18 10:20 Penicillins Allergy Severe Hives Verified 01/04/18 10:20 adhesive tape Allergy Intermediate Rash Verified 01/04/18 10:20 codeine Allergy Intermediate Hives Verified 01/04/18 10:20 Sulfa (Sulfonamide Allergy Intermediate Hives Verified 01/04/18 10:20 Antibiotics) topiramate AdvReac Intermediate Seizure Verified 01/04/18 10:20 Medical - CN: Exam - Constitutional Vitals: Temp Pulse Resp BP Pulse Ox 98.1 F 60 18 128/70 95 01/08/18 11:53 01/08/18 08:00 01/08/18 11:53 01/08/18 11:53 01/08/18 11:53 General appearance: average body habitus, mild distress - Respiratory Respiratory exam: Present: normal respiratory exam - GI/Abdominal GI/Abdominal exam: Present: soft, hypoactive bowel sounds, tenderness Additional comments: in suprapubic area for the most part, some tenderness in both right and left lower quadrants Medical - CN: Result - Labs CBC & Chem 7: 01/08/18 03:45 01/08/18 03:45 Labs: Short CBC 01/08/18 Range/Units 03:45 WBC 14.8 H (4.5-11.0) K/mcL Hgb 11.2 L (12.0-15.0) g/dL Hct 35.2 L (36.0-48.0) % Plt Count 287 (140-440) K/mcL BMP 01/08/18 03:45 Sodium 139 Potassium 3.1 L Chloride 105 Carbon Dioxide 21 L BUN 19 Creatinine 0.8 Glucose 82 Calcium 8.3 L Liver Function 01/08/18 Range/Units 03:45 Total Bilirubin < 0.2 (0.0-1.0) mg/dL Direct Bilirubin < 0.2 (0.0-0.3) mg/dL GGT 25 (5-36) U/L AST 9 (0-37) U/l ALT < 5 (0-40) U/l Alkaline Phosphatase 75 (39-117) U/L Albumin 2.7 L (3.2-5.2) gm/dL Medical - CN: A/P - Narrative A/P Narrative: Assessment: 1. Recurrent C. difficile infection: From the clinical criteria and labs it seems to be mild and uncomplicated C. difficile infection. Most of these recurrent episodes have been precipitated by systemic antibiotics - Given up trending white cell count and the fact that it is recurrent C. difficile, will continue dual therapy with oral vancomycin and IV metronidazole for now. -Stool transplant would be the optimal treatment given she has about 3 recurrences, and her risk of subsequent C. difficile infection is much higher 2. No sepsis Recommendations: -Continue IV metronidazole 500 mg every 8 hours, and oral vancomycin 250 mg every 6 hours -Spoke with about contacting novelty twister tender for assistance with getting frozen stool capsules. Will plan to do a stool transplant once available. Please call ID once stool capsules are available. ID will continue to follow while inpatient. Juan Leigh MD Infectious diseases
[2018-01-08] MEDS: GABAPENTIN 300 MG CAPSULE PO SCH (20:38)
[2018-01-08] MEDS: BENZOCAINE/MENTHOL 1 LOZENGE PO PRN ×2 (20:38→23:01)
[2018-01-08] MEDS: HCL PO SCH (21:44)
[2018-01-08] MEDS: VERAPAMIL PO SCH (21:44)
[2018-01-09] MEDS: HYDROcodone/APAP 10/325MG TABLET PO PRN ×3 (00:12→21:01)
[2018-01-09] MEDS: BENZOCAINE/MENTHOL 1 LOZENGE PO PRN ×2 (00:13→23:58)
[2018-01-09] MEDS: metroNIDAZOLE 500 MG/100 ML BAG IV SCH ×3 (05:29→22:03)
[2018-01-09 05:38] LABS: Basophils # (Auto) 0.1 K/mcL (0.0-0.3); Basophils % (Auto) 0.4 % (0.0-2.0); Eosinophils # (Auto) 0.6 K/mcL (0.0-0.7); Eosinophils % (Auto) 4.1 % (0.0-7.0); Granulocytes % (Auto) 65.9 % (38.0-78.0); Lymphocytes # (Auto) 3.3 K/mcL (1.5-4.8); Lymphocytes % (Auto) 22.5 % (15.5-49.0); Mean Cell Volume 83.9 fL (80.0-100.0); Mean Corpuscular HGB Conc 32.1 g/dL (31.0-36.0); Monocytes % (Auto) 7.1 % (1.0-12.0); Platelet Count 333 K/mcL (140-440); RBC 4.36 M/mcL (4.00-5.20); Red Cell Distribution Width 15.3 % (11.5-14.5)
[2018-01-09 06:12] LABS: ALT/SGPT 6 U/l (0-40); Albumin 2.8 gm/dL (3.2-5.2); Albumin/Globulin Ratio 0.9 (1.0-2.3); Alkaline Phosphatase 69 U/L (39-117); Bilirubin,Direct < 0.2 mg/dL (0.0-0.3); Blood Urea Nitrogen 14 mg/dl (8-23); Gamma Glutamyl Transpeptidase 27 U/L (5-36); Uric Acid 6.5 mg/dL (2.5-8.0)
[2018-01-09] MEDS: ASPIRIN 81 MG TAB.CHEW PO SCH ×2 (09:51→21:00)
[2018-01-09] MEDS: VITAMIN D3 5,000 UNIT CAPSULE PO SCH (09:51)
[2018-01-09] MEDS: VANCOMYCIN ORAL SOL 1,000 MG/10 ML BOTTLE PO SCH ×4 (09:51→21:00)
[2018-01-09] MEDS: DICYCLOMINE 20 MG TABLET PO SCH ×4 (09:51→21:00)
[2018-01-09] MEDS: FISH OIL 1,000 MG CAPSULE PO SCH (09:51)
[2018-01-09] MEDS: FAMOTIDINE 20 MG TABLET PO SCH (09:51)
[2018-01-09] MEDS: ISOSORBIDE MONONITRATE 30 MG TAB.XL.24H PO SCH (09:51)
[2018-01-09] MEDS: ASCORBIC ACID 500 MG TABLET PO SCH (09:51)
[2018-01-09] MEDS: PROPRANOLOL 60 MG CAP.XL.24H PO SCH (09:51)
[2018-01-09] MEDS: TOPIRAMATE 100 MG TABLET PO SCH ×2 (10:04→21:00)
[2018-01-09] MEDS: OMEPRAZOLE 20 MG CAPSULE PO SCH ×2 (10:04→18:22)
--- NOTE | 2018-01-09 15:18 | Internal Med Progress Note ---
Medical - PN: Subj Patient information: Note initiated : 01/09/18 at 3:16 pm Service Date, if different from initiated Date: [] Patient: Michael Hammond a 77 y/o F admitted on 01/07/18 for Diarrhea/C Diff. Chief Complaint: [] Interval history: Ms. Hammond is a 77 year old F s/p treatment for recent flare of diverticulitis and completed 2 weeks antibiotics. She subsequently developed over last few days and followed up with surgery as outpatient 2 days ago.. She was started on dicyclomine by surgery however her symptoms continued to worsen and presents to the ER. During the initial visit she was diagnosed with Cdif ,discharged on oral vancomycin. However for reasons unclear patient did not take oral vancomycin and her symptoms continued to worsen with profuse diarrhea and weakness. She now presents to the ER second time with watery dirrhea, weakness fatigue , exhaustion and hypotension. He denied associated fever or abdominal pain. Initial W/u in ED positive for C Diff white count 11.9, Started on crystalloids and vancomycin PO. Hospitalist service was consulted. At the time of evaluation patient is very lethargic and feels wiped out. She was able to provide history as above. 01/07 Pt seen examined, no acute overnigth issues, K low this am to be replaced still having diarrhea, anxious about her kidneys, concerned vancomycin will cause kidney damage, educated that oral vancdomycin is not absorbed Patient also notes had bronchitis few days ago, and this is her 5th episode of Cdiff this year? She has abdominal cramping, which is unchanged since yesterday. 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 Discussed plan with Dr uPga, plan for xfer to [facility] thursday if they have sample availabe for transplant. Pt does not wish to do a NG tube transplant abdominal pain improving, no other compalints. Pertinent ROS: Denies headache, dizziness Denies chest pain, palpitations Denies cough or shortness of breath improving abdominal pain, nausea or vomiting. - Constitutional Vitals: Vital Signs Temp Pulse Resp BP Pulse Ox 97.9 F 58 L 16 132/68 94 01/09/18 12:00 01/09/18 12:00 01/09/18 12:00 01/09/18 12:00 01/09/18 12:00 Period Temp Pulse Resp BP Sys/Underwood Pulse Ox Last 24 Hr 97.9 F-98.9 F 58-62 16-18 120-138/68-72 93-96 Intake and Output 01/09/18 01/09/18 01/09/18 05:59 13:59 21:59 Intake Total 250 / 250 220 / 220 Output Total 590 / 590 1100 / 1100 Balance -340 / -340 -880 / -880 Intake & Output: Intake & Output 01/09/18 01/09/18 01/09/18 05:59 13:59 21:59 Intake Total 250 / 250 220 / 220 Output Total 590 / 590 1100 / 1100 Balance -340 / -340 -880 / -880 Intake: IV 100 / 100 100 / 100 Oral 150 / 150 120 / 120 Output: Void Amount 590 / 590 1100 / 1100 Other: Meal Breakfast Percent of Meal Consumed 100% Stool Size Large Small Stool Color Brown Stool Consistency Loose Liquid # Bowel Movements 1 1 # of times incontinent of 1 Bowels Exam: Constitutional; Afebrile, cooperative, alert, not in distress. Eyes- No icterus, , No periorbital swelling Ears- Ext ear normal, hearing normal to conversation. Orophaynx- white spots noted, pt had some odynophagia Neck- Midline trachea, supple Respiratory system: Air Entry equal on both sides, No crackles or wheezing, no rhonchi. CVS- Rate rhythm regular, S1,S2 heard, no gallop, no rub. 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 Medical - PN: Obj Da - Labs CBC & Chem 7: 01/09/18 04:35 01/09/18 04:35 Labs: Abnormal Lab Results 01/09/18 01/09/18 01/08/18 04:35 04:35 03:45 WBC 14.6 H Hgb 11.8 L Hct RDW 15.3 H Gran % Lymph % (Auto) Gran # 9.6 H [place] # (Auto) 1.0 H Potassium 3.1 L Carbon Dioxide 21 L Anion Gap BUN Creatinine Uric Acid Calcium 8.3 L Phosphorus 1.8 L Total Protein 5.5 L Albumin 2.8 L 2.7 L Albumin/Globulin Ratio 0.9 L Triglycerides 172 H 01/08/18 01/07/18 01/07/18 03:45 09:25 09:25 WBC 14.8 H 14.6 H Hgb 11.2 L 11.7 L Hct 35.2 L RDW 14.9 H 14.7 H Gran % 80.1 H Lymph % (Auto) 14.1 L Gran # 9.7 H 11.7 H [place] # (Auto) 1.1 H Potassium 2.8 L* Carbon Dioxide Anion Gap BUN Creatinine Uric Acid 8.4 H Calcium 8.2 L Phosphorus Total Protein Albumin 2.8 L Albumin/Globulin Ratio 0.9 L Triglycerides 01/06/18 01/06/18 22:00 22:00 WBC 11.9 H Hgb Hct RDW Gran % Lymph % (Auto) Gran # 9.0 H [place] # (Auto) Potassium Carbon Dioxide 18 L Anion Gap 19.0 H BUN 24 H Creatinine 1.5 H Uric Acid Calcium Phosphorus Total Protein Albumin Albumin/Globulin Ratio 0.9 L Triglycerides Meds: Medications Hydrocodone Bitart/Acetaminophen ([place] 10/325mg) 1 tab PO Q4-6HP PRN PRN Reason: PAIN LEVEL 3-6 Last Admin: 01/09/18 12:24 Dose: 1 tab Ascorbic Acid (Vitamin C) 500 mg PO DAILY [facility] Last Admin: 01/09/18 09:51 Dose: 500 mg Aspirin (Aspirin) 81 mg PO BID [facility] Last Admin: 01/09/18 09:51 Dose: 81 mg Dicyclomine HCl (Dicyclomine) 20 mg PO QID [facility] Last Admin: 01/09/18 14:36 Dose: 20 mg Famotidine (Pepcid) 20 mg PO QDAY [facility] Last Admin: 01/09/18 09:51 Dose: 20 mg Fish Oil (Fish Oil) 1,000 mg PO DAILY [facility] Last Admin: 01/09/18 09:51 Dose: 1,000 mg Gabapentin (Neurontin) 300 mg PO QHS [facility] Last Admin: 01/08/18 20:38 Dose: 300 mg Metronidazole (Flagyl) 500 mg in 100 mls @ 100 mls/hr IV Q8H [facility] Last Admin: 01/09/18 14:36 Dose: 100 mls/hr Isosorbide Mononitrate (Imdur) 30 mg PO DAILY [facility] Last Admin: 01/09/18 09:51 Dose: 30 mg Meclizine HCl (Antivert) 12.5 mg PO QIDP PRN PRN Reason: Nausea Omeprazole (Prilosec) 20 mg PO BIDAC [facility] Last Admin: 01/09/18 10:04 Dose: 20 mg Ondansetron HCl (Zofran) 4 mg IV Q4HP PRN PRN Reason: Nausea And Vomiting Verapamil Xl Hcl 80 (Mg Tablet) 1 dose PO HS [facility] Last Admin: 01/08/18 21:44 Dose: Not Given Propranolol HCl (Inderal La) 60 mg PO QDAY [facility] Last Admin: 01/09/18 09:51 Dose: 60 mg Throat Lozenges (Cepacol) 1 lozenge PO PRN PRN PRN Reason: Sore Throat Last Admin: 01/09/18 00:13 Dose: 1 lozenge Topiramate (Topamax) 100 mg PO BID [facility] Last Admin: 01/09/18 10:04 Dose: 100 mg Vancomycin HCl (Vancomycin Oral Shaye) 250 mg PO QID [facility] Last Admin: 01/09/18 14:36 Dose: 2.5 ml Vitamin D (Vitamin D3) 5,000 unit PO QDAY [facility] Last Admin: 01/09/18 09:51 Dose: 5,000 unit Medical - PN: A/P - Time Spent With Patient Total time spent is greater than 50% in coordination of care (as documented) at patient's floor/unit and/or counseling patient: - Narrative A/P Narrative: A/P 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 clearly has had multiple epidoses based on chart reveiw, ID consulted, advised stool transplant, discussed with Dr Puga, he will try to obtain sample on thursday, he will call back on thursday and let me know what the next step would be Hypotension- bp stable now, resumed propranolol, oropharyngeal guilherme- Nystatin ssw for now, TIMOTHY- resolved. h/o recent diverticulitis chart reviewed, was been seen by Dr Pennington for same, on cipro flagyl it seems Neuropathy- on neurontin, continue same Anxiety- on effexor, and propranolol Abdominal cramping- due to colitis, dicyclomine , improving. DVT hep sq Full code
[2018-01-09] MEDS: NYSTATIN 500,000 UNITS/5 ML ORAL.SUSP SSW SCH ×2 (18:21→21:00)
[2018-01-09] MEDS: GABAPENTIN 300 MG CAPSULE PO SCH (21:00)
[2018-01-09] MEDS: HCL PO SCH (21:02)
[2018-01-09] MEDS: VERAPAMIL PO SCH (21:02)
[2018-01-10 05:53] LABS: Basophils # (Auto) 0 K/mcL (0.0-0.3); Basophils % (Auto) 0.2 % (0.0-2.0); Eosinophils # (Auto) 0.5 K/mcL (0.0-0.7); Eosinophils % (Auto) 3.5 % (0.0-7.0); Granulocytes % (Auto) 62.5 % (38.0-78.0); Mean Cell Volume 84.6 fL (80.0-100.0); Mean Corpuscular Hemoglobin 27.1 pg (26.0-34.0); Monocytes # (Auto) 1.2 K/mcL (0.1-0.9); Monocytes % (Auto) 7.8 % (1.0-12.0); Platelet Count 307 K/mcL (140-440); RBC 4.16 M/mcL (4.00-5.20); Red Cell Distribution Width 15.2 % (11.5-14.5)
[2018-01-10] MEDS: metroNIDAZOLE 500 MG/100 ML BAG IV SCH (06:04)
[2018-01-10 06:13] LABS: ALT/SGPT 6 U/l (0-40); Albumin 2.7 gm/dL (3.2-5.2); Albumin/Globulin Ratio 0.9 (1.0-2.3); Alkaline Phosphatase 57 U/L (39-117); Bilirubin,Direct < 0.2 mg/dL (0.0-0.3); Blood Urea Nitrogen 13 mg/dl (8-23); Gamma Glutamyl Transpeptidase 25 U/L (5-36); Uric Acid 5.5 mg/dL (2.5-8.0)
[2018-01-10] MEDS: OMEPRAZOLE 20 MG CAPSULE PO SCH ×2 (07:52→17:54)
[2018-01-10] MEDS: PROPRANOLOL 60 MG CAP.XL.24H PO SCH (09:32)
[2018-01-10] MEDS: FISH OIL 1,000 MG CAPSULE PO SCH (09:32)
[2018-01-10] MEDS: FAMOTIDINE 20 MG TABLET PO SCH (09:32)
[2018-01-10] MEDS: VITAMIN D3 5,000 UNIT CAPSULE PO SCH (09:32)
[2018-01-10] MEDS: ISOSORBIDE MONONITRATE 30 MG TAB.XL.24H PO SCH (09:32)
[2018-01-10] MEDS: DICYCLOMINE 20 MG TABLET PO SCH ×4 (09:32→20:12)
[2018-01-10] MEDS: ASCORBIC ACID 500 MG TABLET PO SCH (09:32)
[2018-01-10] MEDS: ASPIRIN 81 MG TAB.CHEW PO SCH ×2 (09:32→20:13)
[2018-01-10] MEDS: VANCOMYCIN ORAL SOL 1,000 MG/10 ML BOTTLE PO SCH (09:33)
[2018-01-10] MEDS: NYSTATIN 500,000 UNITS/5 ML ORAL.SUSP SSW SCH ×4 (09:33→20:13)
[2018-01-10] MEDS: TOPIRAMATE 100 MG TABLET PO SCH ×2 (09:34→20:13)
[2018-01-10 12:22] LABS: Appearance,Urine CLEAR; Bacteria,Urine 0 /hpf (0); Bilirubin,Urine NEG (NEG); Color,Urine YELLOW; Glucose,Urine (UA) NEGATIVE (NEG); Leukocyte Esterase,Urine 25 /uL (NEG); Mucus,Urine FEW /hpf (0); Protein,Urine NEG (NEG); Specific Gravity,Urine 1.012 (1.000-1.035); Urine Blood NEG mg/dL (<0.03); Urine Hyaline Cast 1 /lpf (0-2); Urine RBC < 1 /hpf (0-1); Urine Squamous Epithelial Cell 1 /hpf (0-4); Urine WBC 1 /hpf (0-4); Urobilinogen,Urine NEG (NEG)
[2018-01-10] MEDS: HYDROcodone/APAP 10/325MG TABLET PO PRN ×2 (12:46→21:35)
--- NOTE | 2018-01-10 13:25 | XRay Report ---
CLINICAL INFORMATION: Increase white blood cell count COMPARISON: 02/28/2017. FINDINGS: The heart size, mediastinum and pulmonary vessels are unremarkable. Is mild patchy airspace disease in the the left lower lobe. There are no effusions. The bones and soft tissues are within normal limits. IMPRESSION: Mild patchy airspace disease left lower lobe which could indicate developing infiltrate. Suggest short-term radiographic follow-up Interpreted and Authenticated by: Hector Lopez 01/10/18
--- NOTE | 2018-01-10 16:22 | Internal Med Progress Note ---
Medical - PN: Subj Patient information: Note initiated : 01/10/18 at 4:20 pm Service Date, if different from initiated Date: [] Patient: Michael Hammond a 77 y/o F admitted on 01/07/18 for Diarrhea/C Diff. Chief Complaint: [] Interval history: Ms. Hammond is a 77 year old F s/p treatment for recent flare of diverticulitis and completed 2 weeks antibiotics. She subsequently developed over last few days and followed up with surgery as outpatient 2 days ago.. She was started on dicyclomine by surgery however her symptoms continued to worsen and presents to the ER. During the initial visit she was diagnosed with Cdif ,discharged on oral vancomycin. However for reasons unclear patient did not take oral vancomycin and her symptoms continued to worsen with profuse diarrhea and weakness. She now presents to the ER second time with watery dirrhea, weakness fatigue , exhaustion and hypotension. He denied associated fever or abdominal pain. Initial W/u in ED positive for C Diff white count 11.9, Started on crystalloids and vancomycin PO. Hospitalist service was consulted. At the time of evaluation patient is very lethargic and feels wiped out. She was able to provide history as above. 01/07 Pt seen examined, no acute overnigth issues, K low this am to be replaced still having diarrhea, anxious about her kidneys, concerned vancomycin will cause kidney damage, educated that oral vancdomycin is not absorbed Patient also notes had bronchitis few days ago, and this is her 5th episode of Cdiff this year? She has abdominal cramping, which is unchanged since yesterday. 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 Discussed plan with Dr Puga, plan for xfer to [facility] thursday if they have sample availabe for transplant. Pt does not wish to do a NG tube transplant abdominal pain improving, no other compalints. 01/10 Patient seen and examined still having some diarrhea but no diarrhea overnight. Patient feels better. WBC count slightly up today. Awaiting stool transplant. Case discussed with Dr. Sanders today. He believes he will have stool transplant sample by Thursday at which time we can plan the colonoscopy at [facility]. Chest x-ray was done questionable bibasilar infiltrate, patient does not have much symptoms will avoid use of antibiotics at this time unless patient develops clinical symptoms of pneumonia. Urinalysis negative. We need to hold vancomycin and Flagyl for 2 days before the stool transplant can be done will hold the medications. Pertinent ROS: Denies headache, dizziness Denies chest pain, palpitations Denies cough or shortness of breath improving abdominal pain,no nausea or vomiting. - Constitutional Vitals: Vital Signs Temp Pulse Resp BP Pulse Ox 98 F 60 16 130/68 97 01/10/18 12:00 01/10/18 12:00 01/10/18 12:00 01/10/18 12:00 01/10/18 12:00 Period Temp Pulse Resp BP Sys/Underwood Pulse Ox Last 24 Hr 98 F-99.4 F 56-63 16-24 130-144/68-76 93-97 Intake and Output 01/10/18 01/10/18 01/10/18 05:59 13:59 21:59 Intake Total 600 / 600 220 / 220 Output Total 450 / 450 925 / 925 Balance 150 / 150 -705 / -705 Weight 172 lb Intake & Output: Intake & Output 01/10/18 01/10/18 01/10/18 05:59 13:59 21:59 Intake Total 600 / 600 220 / 220 Output Total 450 / 450 925 / 925 Balance 150 / 150 -705 / -705 Weight 172 lb Intake: IV 100 / 100 100 / 100 Oral 500 / 500 120 / 120 Output: Void Amount 450 / 450 925 / 925 Other: Meal Breakfast Lunch Percent of Meal Consumed 100% Refused Stool Size Moderate Large Stool Color Brown Stool Consistency Soft Liquid Loose # Voids 1 2 # Bowel Movements 1 2 # of times incontinent of 1 2 Bowels # Emeses 1 Exam: Constitutional; Afebrile, cooperative, alert, not in distress. Respiratory system: Air Entry equal on both sides, No crackles or wheezing, no rhonchi. CVS- Rate rhythm regular, S1,S2 heard, no gallop, no rub. 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 Medical - PN: Obj Da - Labs CBC & Chem 7: 01/10/18 04:20 01/10/18 04:20 Labs: Abnormal Lab Results 01/10/18 01/10/18 01/10/18 11:00 04:20 04:20 WBC 15.2 H Hgb 11.3 L Hct 35.2 L RDW 15.2 H Gran # 9.5 H [place] # (Auto) 1.2 H Potassium Carbon Dioxide 21 L Calcium 8.5 L Phosphorus Total Protein 5.6 L Albumin 2.7 L Albumin/Globulin Ratio 0.9 L Triglycerides Ur Leukocyte Esterase 25 A 01/09/18 01/09/18 01/08/18 04:35 04:35 03:45 WBC 14.6 H Hgb 11.8 L Hct RDW 15.3 H Gran # 9.6 H [place] # (Auto) 1.0 H Potassium 3.1 L Carbon Dioxide 21 L Calcium 8.3 L Phosphorus 1.8 L Total Protein 5.5 L Albumin 2.8 L 2.7 L Albumin/Globulin Ratio 0.9 L Triglycerides 172 H Ur Leukocyte Esterase 01/08/18 03:45 WBC 14.8 H Hgb 11.2 L Hct 35.2 L RDW 14.9 H Gran # 9.7 H [place] # (Auto) 1.1 H Potassium Carbon Dioxide Calcium Phosphorus Total Protein Albumin Albumin/Globulin Ratio Triglycerides Ur Leukocyte Esterase Meds: Medications Hydrocodone Bitart/Acetaminophen ([place] 10/325mg) 1 tab PO Q4-6HP PRN PRN Reason: PAIN LEVEL 3-6 Last Admin: 01/10/18 12:46 Dose: 1 tab Ascorbic Acid (Vitamin C) 500 mg PO DAILY [facility] Last Admin: 01/10/18 09:32 Dose: 500 mg Aspirin (Aspirin) 81 mg PO BID [facility] Last Admin: 01/10/18 09:32 Dose: 81 mg Dicyclomine HCl (Dicyclomine) 20 mg PO QID [facility] Last Admin: 01/10/18 12:49 Dose: 20 mg Famotidine (Pepcid) 20 mg PO QDAY [facility] Last Admin: 01/10/18 09:32 Dose: 20 mg Fish Oil (Fish Oil) 1,000 mg PO DAILY [facility] Last Admin: 01/10/18 09:32 Dose: 1,000 mg Gabapentin (Neurontin) 300 mg PO QHS [facility] Last Admin: 01/09/18 21:00 Dose: 300 mg Isosorbide Mononitrate (Imdur) 30 mg PO DAILY [facility] Last Admin: 01/10/18 09:32 Dose: 30 mg Meclizine HCl (Antivert) 12.5 mg PO QIDP PRN PRN Reason: Nausea Nystatin (Nystatin) 500,000 units SSW QID [facility] Last Admin: 01/10/18 09:33 Dose: 500,000 units Omeprazole (Prilosec) 20 mg PO BIDAC [facility] Last Admin: 01/10/18 07:52 Dose: 20 mg Ondansetron HCl (Zofran) 4 mg IV Q4HP PRN PRN Reason: Nausea And Vomiting Last Admin: 01/10/18 13:06 Dose: 4 mg Verapamil Xl Hcl 80 (Mg Tablet) 1 dose PO HS [facility] Last Admin: 01/09/18 21:02 Dose: Not Given Propranolol HCl (Inderal La) 60 mg PO QDAY [facility] Last Admin: 01/10/18 09:32 Dose: 60 mg Throat Lozenges (Cepacol) 1 lozenge PO PRN PRN PRN Reason: Sore Throat Last Admin: 01/09/18 23:58 Dose: 1 lozenge Topiramate (Topamax) 100 mg PO BID [facility] Last Admin: 01/10/18 09:34 Dose: 100 mg Vitamin D (Vitamin D3) 5,000 unit PO QDAY [facility] Last Admin: 01/10/18 09:32 Dose: 5,000 unit Medical - PN: A/P - Time Spent With Patient Total time spent is greater than 50% in coordination of care (as documented) at patient's floor/unit and/or counseling patient: - Narrative A/P Narrative: A/P Recurrent Cdiff diarrhea-recurrent episode, albumin 2.7, indication for stool transplant. Dr. Sanders is planning to get the sample tomorrow, will be available likely by Thursday. We will plan the procedure then. Hypotension- bp stable now, resumed propranolol, oropharyngeal guilherme- Nystatin ssw for now, Bibasilar infiltrates versus atelectasis-monitor for now incentive spirometry. aCapella TIMOTHY- resolved. h/o recent diverticulitis chart reviewed, was been seen by Dr Pennington for same, on cipro flagyl it seems Neuropathy- on neurontin, continue same Anxiety- on effexor, and propranolol Abdominal cramping- due to colitis, dicyclomine , improving. DVT hep sq Full code
[2018-01-10] MEDS: VERAPAMIL PO SCH (20:13)
[2018-01-10] MEDS: HCL PO SCH (20:13)
[2018-01-10] MEDS: GABAPENTIN 300 MG CAPSULE PO SCH (20:13)
[2018-01-10] MEDS: BENZOCAINE/MENTHOL 1 LOZENGE PO PRN (23:40)
[2018-01-11 05:30] LABS: Basophils # (Auto) 0 K/mcL (0.0-0.3); Basophils % (Auto) 0.1 % (0.0-2.0); Eosinophils # (Auto) 0.5 K/mcL (0.0-0.7); Eosinophils % (Auto) 2.8 % (0.0-7.0); Lymphocytes # (Auto) 4.3 K/mcL (1.5-4.8); Lymphocytes % (Auto) 26.1 % (15.5-49.0); Mean Cell Volume 84.8 fL (80.0-100.0); Mean Corpuscular HGB Conc 31.9 g/dL (31.0-36.0); Monocytes # (Auto) 1.6 K/mcL (0.1-0.9); Platelet Count 315 K/mcL (140-440)
[2018-01-11 05:56] LABS: ALT/SGPT 6 U/l (0-40); Albumin 2.6 gm/dL (3.2-5.2); Albumin/Globulin Ratio 0.9 (1.0-2.3); Alkaline Phosphatase 62 U/L (39-117); Bilirubin,Direct < 0.2 mg/dL (0.0-0.3); Blood Urea Nitrogen 14 mg/dl (8-23); Gamma Glutamyl Transpeptidase 24 U/L (5-36); Uric Acid 5.5 mg/dL (2.5-8.0)
[2018-01-11] MEDS: VITAMIN D3 5,000 UNIT CAPSULE PO SCH (09:21)
[2018-01-11] MEDS: OMEPRAZOLE 20 MG CAPSULE PO SCH ×2 (09:21→16:51)
[2018-01-11] MEDS: FISH OIL 1,000 MG CAPSULE PO SCH (09:21)
[2018-01-11] MEDS: ASCORBIC ACID 500 MG TABLET PO SCH (09:21)
[2018-01-11] MEDS: FAMOTIDINE 20 MG TABLET PO SCH (09:21)
[2018-01-11] MEDS: PROPRANOLOL 60 MG CAP.XL.24H PO SCH (09:22)
[2018-01-11] MEDS: ISOSORBIDE MONONITRATE 30 MG TAB.XL.24H PO SCH (09:22)
[2018-01-11] MEDS: ASPIRIN 81 MG TAB.CHEW PO SCH ×2 (09:22→20:40)
[2018-01-11] MEDS: NYSTATIN 500,000 UNITS/5 ML ORAL.SUSP SSW SCH ×4 (09:22→20:40)
[2018-01-11] MEDS: HYDROcodone/APAP 10/325MG TABLET PO PRN ×2 (09:22→16:51)
[2018-01-11] MEDS: DICYCLOMINE 20 MG TABLET PO SCH ×4 (09:32→20:40)
[2018-01-11] MEDS: TOPIRAMATE 100 MG TABLET PO SCH ×2 (09:32→20:40)
--- NOTE | 2018-01-11 11:46 | Cat Scan Report ---
CLINICAL INFORMATION: Cough COMPARISON: Chest CT with contrast - 07/12/2017 TECHNIQUE: 0.625 mm axial slices were obtained from the lung apices through the bases without intravenous contrast. 2.5 mm Sagittal, coronal and axial reformatted images were processed and reviewed at bone, lung and soft tissue windows. 7 mm axial MIP images were also reconstructed to optimize pulmonary nodule detection.The exam was performed using radiation dose optimization techniques including, but not limited to, automated exposure control, adjustment of the mA and/or kV according to patient size and use of iterative reconstruction technique. FINDINGS: Pulmonary parenchymal windows show new moderate, yet vague, peribronchovascular infiltrates in the left lower lobe and lingula. The remaining lungs are clear. Pleural spaces are normal. Mediastinal windows show the noncontrasted pulmonary arteries and thoracic aorta are normal in contour and caliber. There are no abnormally enlarged lymph nodes in the mediastinal or hilar regions. Thyroid is normal. The heart is mildly enlarged with calcific plaque in the proximal coronary arteries - as before. Images initially abdomen show 3.3 cm simple cyst in the sabrina hepatis which is unchanged. Noncontrasted visualized kidneys adrenal glands spleen and pancreas are normal. Bone windows show mild old compression fractures of the T11, T12 and L1 vertebral bodies IMPRESSION: 1. Moderate vague left lower lobe and lingular infiltrates. Noncontrast chest is otherwise normal 2. 3.3 cm simple cyst sabrina hepatis Interpreted and Authenticated by: Hector Lopez 01/11/18
[2018-01-11] MEDS: BENZOCAINE/MENTHOL 1 LOZENGE PO PRN (13:56)
[2018-01-11] MEDS ORDERED: PEG 3350/NA SULF,BICARB,CL/KCL 4,000 ML ORAL.SOL PO ONE (17:00)
--- NOTE | 2018-01-11 17:39 | Internal Med Progress Note ---
Medical - PN: Subj Patient information: Note initiated : 01/11/18 at 5:35 pm Service Date, if different from initiated Date: [] Patient: Michael Hammond 77 y/o F admitted on 01/07/18 for Diarrhea/C Diff. Chief Complaint: [] Interval history: Patient feeling better, only had 2 bowel movements today. No fever, nausea, vomiting, chills, belly pain. Patient aware of plan to do a stool transplant tomorrow Pertinent ROS: Nothing unless stated in subjective - Constitutional Vitals: Vital Signs Temp Pulse Resp BP Pulse Ox 98.7 F 54 L 18 105/78 92 01/11/18 15:53 01/11/18 04:00 01/11/18 15:53 01/11/18 15:53 01/11/18 15:53 Period Temp Pulse Resp BP Sys/Underwood Pulse Ox Last 24 Hr 98 F-98.7 F 54-59 18-24 105-134/63-86 92-95 Intake and Output 01/11/18 01/11/18 01/11/18 05:59 13:59 21:59 Intake Total 0 / 0 320 / 320 360 / 360 Output Total 150 / 150 Balance -150 / -150 320 / 320 360 / 360 Weight 167 lb Patient Weight 01/12/18 05:59 Weight 167 lb Intake & Output: Intake & Output 01/11/18 01/11/18 01/11/18 05:59 13:59 21:59 Intake Total 0 / 0 320 / 320 360 / 360 Output Total 150 / 150 Balance -150 / -150 320 / 320 360 / 360 Weight 167 lb Intake: Oral 0 / 0 320 / 320 360 / 360 Output: Void Amount 150 / 150 Other: Meal Breakfast Lunch Percent of Meal Consumed 50% 75% Stool Size Smear Stool Color Brown Stool Consistency Liquid Liquid # Voids 2 1 # Bowel Movements 2 1 # of times incontinent of 2 1 Bowels General appearance: average body habitus, cooperative - GI/Abdominal GI/Abdominal exam: Present: normal bowel sounds, soft. Absent: tenderness Medical - PN: Obj Da - Labs CBC & Chem 7: 01/11/18 04:00 01/11/18 04:00 Labs: Abnormal Lab Results 01/11/18 01/11/18 01/10/18 04:00 04:00 11:00 WBC 16.4 H Hgb 11.1 L Hct 34.7 L RDW 15.0 H Gran # 10.0 H [place] # (Auto) 1.6 H Carbon Dioxide 21 L Calcium 8.3 L Total Protein 5.5 L Albumin 2.6 L Albumin/Globulin Ratio 0.9 L Triglycerides Ur Leukocyte Esterase 25 A 01/10/18 01/10/18 01/09/18 04:20 04:20 04:35 WBC 15.2 H Hgb 11.3 L Hct 35.2 L RDW 15.2 H Gran # 9.5 H [place] # (Auto) 1.2 H Carbon Dioxide 21 L Calcium 8.5 L Total Protein 5.6 L Albumin 2.7 L 2.8 L Albumin/Globulin Ratio 0.9 L 0.9 L Triglycerides 172 H Ur Leukocyte Esterase 01/09/18 04:35 WBC 14.6 H Hgb 11.8 L Hct RDW 15.3 H Gran # 9.6 H [place] # (Auto) 1.0 H Carbon Dioxide Calcium Total Protein Albumin Albumin/Globulin Ratio Triglycerides Ur Leukocyte Esterase Meds: Medications Hydrocodone Bitart/Acetaminophen ([place] 10/325mg) 1 tab PO Q4-6HP PRN PRN Reason: PAIN LEVEL 3-6 Last Admin: 01/11/18 16:51 Dose: 1 tab Ascorbic Acid (Vitamin C) 500 mg PO DAILY [facility] Last Admin: 01/11/18 09:21 Dose: 500 mg Aspirin (Aspirin) 81 mg PO BID [facility] Last Admin: 01/11/18 09:22 Dose: 81 mg Dicyclomine HCl (Dicyclomine) 20 mg PO QID [facility] Last Admin: 01/11/18 13:13 Dose: 20 mg Famotidine (Pepcid) 20 mg PO QDAY [facility] Last Admin: 01/11/18 09:21 Dose: 20 mg Fish Oil (Fish Oil) 1,000 mg PO DAILY [facility] Last Admin: 01/11/18 09:21 Dose: 1,000 mg Gabapentin (Neurontin) 300 mg PO QHS [facility] Last Admin: 01/10/18 20:13 Dose: 300 mg Isosorbide Mononitrate (Imdur) 30 mg PO DAILY [facility] Last Admin: 01/11/18 09:22 Dose: 30 mg Meclizine HCl (Antivert) 12.5 mg PO QIDP PRN PRN Reason: Nausea Nystatin (Nystatin) 500,000 units SSW QID [facility] Last Admin: 01/11/18 16:51 Dose: 500,000 units Omeprazole (Prilosec) 20 mg PO BIDAC [facility] Last Admin: 01/11/18 16:51 Dose: 20 mg Ondansetron HCl (Zofran) 4 mg IV Q4HP PRN PRN Reason: Nausea And Vomiting Last Admin: 01/10/18 13:06 Dose: 4 mg Verapamil Xl Hcl 80 (Mg Tablet) 1 dose PO HS [facility] Last Admin: 01/10/18 20:13 Dose: 1 dose Polyethylene Glycol/Electrolytes (Golytely) 2,000 ml PO ONCE ONE Stop: 01/12/18 07:01 Propranolol HCl (Inderal La) 60 mg PO QDAY [facility] Last Admin: 01/11/18 09:22 Dose: 60 mg Sodium Chloride (Saline Flush) 10 ml IV Q8 [facility] Throat Lozenges (Cepacol) 1 lozenge PO PRN PRN PRN Reason: Sore Throat Last Admin: 01/11/18 13:56 Dose: 1 lozenge Topiramate (Topamax) 100 mg PO BID [facility] Last Admin: 01/11/18 09:32 Dose: 100 mg Verapamil HCl ([place]) 80 mg PO [facility] Vitamin D (Vitamin D3) 5,000 unit PO QDAY [facility] Last Admin: 01/11/18 09:21 Dose: 5,000 unit Medical - PN: A/P - Time Spent With Patient Total time spent is greater than 50% in coordination of care (as documented) at patient's floor/unit and/or counseling patient: less than 15 minutes - Narrative A/P Narrative: Assessment: 1. Recurrent C. difficile infection:mild and uncomplicated, recovering -Almost always precipitated by systemic antibiotics - s/p 6 days of dual therapy with oral vancomycin and IV metronidazole 2. No sepsis Recommendations: -plan for stool transplant tomorrow -Agree with stopping metronidazole and oral vancomycin 48 hours prior to transplant ID will continue to follow while inpatient. Juan Leigh MD Infectious diseases
[2018-01-11] MEDS: 0.9 % SODIUM CHLORIDE 10 ML SYRINGE IV SCH ×2 (18:03→20:40)
--- NOTE | 2018-01-11 18:37 | Internal Med Progress Note ---
Medical - PN: Subj Patient information: Note initiated : 01/11/18 at 6:35 pm Service Date, if different from initiated Date: [] Patient: Michael Hammond a 77 y/o F admitted on 01/07/18 for Diarrhea/C Diff. Chief Complaint: [] Interval history: Ms. Hammond is a 77 year old F s/p treatment for recent flare of diverticulitis and completed 2 weeks antibiotics. She subsequently developed over last few days and followed up with surgery as outpatient 2 days ago.. She was started on dicyclomine by surgery however her symptoms continued to worsen and presents to the ER. During the initial visit she was diagnosed with Cdif ,discharged on oral vancomycin. However for reasons unclear patient did not take oral vancomycin and her symptoms continued to worsen with profuse diarrhea and weakness. She now presents to the ER second time with watery dirrhea, weakness fatigue , exhaustion and hypotension. He denied associated fever or abdominal pain. Initial W/u in ED positive for C Diff white count 11.9, Started on crystalloids and vancomycin PO. Hospitalist service was consulted. At the time of evaluation patient is very lethargic and feels wiped out. She was able to provide history as above. 01/07 Pt seen examined, no acute overnigth issues, K low this am to be replaced still having diarrhea, anxious about her kidneys, concerned vancomycin will cause kidney damage, educated that oral vancdomycin is not absorbed Patient also notes had bronchitis few days ago, and this is her 5th episode of Cdiff this year? She has abdominal cramping, which is unchanged since yesterday. 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 Discussed plan with Dr Puga, plan for xfer to [facility] thursday if they have sample availabe for transplant. Pt does not wish to do a NG tube transplant abdominal pain improving, no other compalints. 01/10 Patient seen and examined still having some diarrhea but no diarrhea overnight. Patient feels better. WBC count slightly up today. Awaiting stool transplant. Case discussed with Dr. Sanders today. He believes he will have stool transplant sample by Thursday at which time we can plan the colonoscopy at [facility]. Chest x-ray was done questionable bibasilar infiltrate, patient does not have much symptoms will avoid use of antibiotics at this time unless patient develops clinical symptoms of pneumonia. Urinalysis negative. We need to hold vancomycin and Flagyl for 2 days before the stool transplant can be done will hold the medications. 01/11 Patient seen and examined, no acute overnight events. Held antibiotics yesterday as per recommendations from GI physician. Plan to do stool transplant tomorrow. Start bowel prep today and tomorrow. Liquid diets tonight. Plan for stool transplant tomorrow evening at [facility]. Patient still has intermittent diarrhea. WBC count trending up slowly. Chest CT shows questionable infiltrate. Pro-calcitonin 0.18. Given the fact that she has C. difficile and is getting prepped for stool transplant will hold off on systemic antibiotics for now unless and until clear symptoms of pnemonia emerge, ID agrees with the plan. Pertinent ROS: Denies headache, dizziness Denies chest pain, palpitations Denies cough or shortness of breath Denies abdominal pain, nausea or vomiting. - Constitutional Vitals: Vital Signs Temp Pulse Resp BP Pulse Ox 98.7 F 54 L 18 105/78 92 01/11/18 15:53 01/11/18 04:00 01/11/18 15:53 01/11/18 15:53 01/11/18 15:53 Period Temp Pulse Resp BP Sys/Underwood Pulse Ox Last 24 Hr 98 F-98.7 F 54-59 18-24 105-134/63-86 92-95 Intake and Output 01/11/18 01/11/18 01/11/18 05:59 13:59 21:59 Intake Total 0 / 0 320 / 320 360 / 360 Output Total 150 / 150 Balance -150 / -150 320 / 320 360 / 360 Weight 167 lb Patient Weight 01/12/18 05:59 Weight 167 lb Intake & Output: Intake & Output 01/11/18 01/11/18 01/11/18 05:59 13:59 21:59 Intake Total 0 / 0 320 / 320 360 / 360 Output Total 150 / 150 Balance -150 / -150 320 / 320 360 / 360 Weight 167 lb Intake: Oral 0 / 0 320 / 320 360 / 360 Output: Void Amount 150 / 150 Other: Meal Breakfast Lunch Percent of Meal Consumed 50% 75% Stool Size Smear Stool Color Brown Stool Consistency Liquid Liquid # Voids 2 1 # Bowel Movements 2 1 # of times incontinent of 2 1 Bowels Exam: Constitutional; Afebrile, cooperative, alert, not in distress. Eyes- No icterus, , No periorbital swelling Ears- Ext ear normal, hearing normal to conversation. Neck- Midline trachea, supple Respiratory system: Air Entry equal on both sides, No crackles or wheezing, no rhonchi. CVS- Rate rhythm regular, S1,S2 heard, no gallop, no rub. Abdomen- Soft nontender abdomen, no organomegaly, no tenderness, no guarding or rigidity, [employer]- AOOx3, moving all extremities, no gross focal deficit noted. Medical - PN: Obj Da - Labs CBC & Chem 7: 01/11/18 04:00 01/11/18 04:00 Labs: Abnormal Lab Results 01/11/18 01/11/18 01/10/18 04:00 04:00 11:00 WBC 16.4 H Hgb 11.1 L Hct 34.7 L RDW 15.0 H Gran # 10.0 H [place] # (Auto) 1.6 H Carbon Dioxide 21 L Calcium 8.3 L Total Protein 5.5 L Albumin 2.6 L Albumin/Globulin Ratio 0.9 L Triglycerides Ur Leukocyte Esterase 25 A 01/10/18 01/10/18 01/09/18 04:20 04:20 04:35 WBC 15.2 H Hgb 11.3 L Hct 35.2 L RDW 15.2 H Gran # 9.5 H [place] # (Auto) 1.2 H Carbon Dioxide 21 L Calcium 8.5 L Total Protein 5.6 L Albumin 2.7 L 2.8 L Albumin/Globulin Ratio 0.9 L 0.9 L Triglycerides 172 H Ur Leukocyte Esterase 01/09/18 04:35 WBC 14.6 H Hgb 11.8 L Hct RDW 15.3 H Gran # 9.6 H [place] # (Auto) 1.0 H Carbon Dioxide Calcium Total Protein Albumin Albumin/Globulin Ratio Triglycerides Ur Leukocyte Esterase Meds: Medications Hydrocodone Bitart/Acetaminophen ([place] 10/325mg) 1 tab PO Q4-6HP PRN PRN Reason: PAIN LEVEL 3-6 Last Admin: 01/11/18 16:51 Dose: 1 tab Ascorbic Acid (Vitamin C) 500 mg PO DAILY [facility] Last Admin: 01/11/18 09:21 Dose: 500 mg Aspirin (Aspirin) 81 mg PO BID [facility] Last Admin: 01/11/18 09:22 Dose: 81 mg Dicyclomine HCl (Dicyclomine) 20 mg PO QID [facility] Last Admin: 01/11/18 17:55 Dose: 20 mg Famotidine (Pepcid) 20 mg PO QDAY [facility] Last Admin: 01/11/18 09:21 Dose: 20 mg Fish Oil (Fish Oil) 1,000 mg PO DAILY [facility] Last Admin: 01/11/18 09:21 Dose: 1,000 mg Gabapentin (Neurontin) 300 mg PO QHS [facility] Last Admin: 01/10/18 20:13 Dose: 300 mg Isosorbide Mononitrate (Imdur) 30 mg PO DAILY [facility] Last Admin: 01/11/18 09:22 Dose: 30 mg Meclizine HCl (Antivert) 12.5 mg PO QIDP PRN PRN Reason: Nausea Nystatin (Nystatin) 500,000 units SSW QID [facility] Last Admin: 01/11/18 16:51 Dose: 500,000 units Omeprazole (Prilosec) 20 mg PO BIDAC [facility] Last Admin: 01/11/18 16:51 Dose: 20 mg Ondansetron HCl (Zofran) 4 mg IV Q4HP PRN PRN Reason: Nausea And Vomiting Last Admin: 01/10/18 13:06 Dose: 4 mg Verapamil Xl Hcl 80 (Mg Tablet) 1 dose PO [facility] Last Admin: 01/10/18 20:13 Dose: 1 dose Polyethylene Glycol/Electrolytes (Golytely) 2,000 ml PO ONCE ONE Stop: 01/12/18 07:01 Propranolol HCl (Inderal La) 60 mg PO QDAY [facility] Last Admin: 01/11/18 09:22 Dose: 60 mg Sodium Chloride (Saline Flush) 10 ml IV Q8 [facility] Last Admin: 01/11/18 18:03 Dose: 10 ml Throat Lozenges (Cepacol) 1 lozenge PO PRN PRN PRN Reason: Sore Throat Last Admin: 01/11/18 13:56 Dose: 1 lozenge Topiramate (Topamax) 100 mg PO BID [facility] Last Admin: 01/11/18 09:32 Dose: 100 mg Verapamil HCl (Calan) 80 mg PO HS [facility] Vitamin D (Vitamin D3) 5,000 unit PO QDAY [facility] Last Admin: 01/11/18 09:21 Dose: 5,000 unit Medical - PN: A/P - Time Spent With Patient Total time spent is greater than 50% in coordination of care (as documented) at patient's floor/unit and/or counseling patient: - Narrative A/P Narrative: A/P Recurrent Cdiff diarrhea-afford her medications now, plan for stool transplant tomorrow. Monitor after transplant anticipate resolution of diarrhea within 24- 48 hours. Hypotension- bp stable now, resumed propranolol, oropharyngeal guilherme- Nystatin ssw for now, TIMOTHY- resolved. h/o recent diverticulitis chart reviewed, was been seen by Dr Pennington for same, on cipro flagyl it seems Neuropathy- on neurontin, continue same Anxiety- on effexor, and propranolol Abdominal cramping- due to colitis, dicyclomine , improving. Pulmonary infiltrates-possible pneumonia developing, given need for stool transplant will hold off on antibiotics no clinical evidence of sepsis infectious disease doctor following. DVT hep sq Full code
[2018-01-11] MEDS: VERAPAMIL HCL 80 MG TABLET PO SCH (20:40)
[2018-01-11] MEDS: VERAPAMIL PO SCH (20:40)
[2018-01-11] MEDS: HCL PO SCH (20:40)
[2018-01-11] MEDS: GABAPENTIN 300 MG CAPSULE PO SCH (20:40)
[2018-01-12] MEDS: BENZOCAINE/MENTHOL 1 LOZENGE PO PRN (03:32)
[2018-01-12] MEDS: HYDROcodone/APAP 10/325MG TABLET PO PRN ×3 (03:32→22:04)
[2018-01-12 06:00] LABS: Basophils # (Auto) 0.1 K/mcL (0.0-0.3); Basophils % (Auto) 0.4 % (0.0-2.0); Eosinophils # (Auto) 0.8 K/mcL (0.0-0.7); Eosinophils % (Auto) 4.4 % (0.0-7.0); Granulocytes % (Auto) 64.4 % (38.0-78.0); Lymphocytes # (Auto) 3.9 K/mcL (1.5-4.8); Lymphocytes % (Auto) 21.7 % (15.5-49.0); Mean Cell Volume 85.4 fL (80.0-100.0); Mean Corpuscular HGB Conc 31.5 g/dL (31.0-36.0); Mean Corpuscular Hemoglobin 26.9 pg (26.0-34.0); Monocytes # (Auto) 1.6 K/mcL (0.1-0.9); Monocytes % (Auto) 9.1 % (1.0-12.0); Platelet Count 294 K/mcL (140-440); RBC 4.57 M/mcL (4.00-5.20); Red Cell Distribution Width 15.5 % (11.5-14.5)
[2018-01-12 06:35] LABS: ALT/SGPT 7 U/l (0-40); Albumin 2.9 gm/dL (3.2-5.2); Albumin/Globulin Ratio 0.9 (1.0-2.3); Alkaline Phosphatase 60 U/L (39-117); Bilirubin,Direct < 0.2 mg/dL (0.0-0.3); Blood Urea Nitrogen 12 mg/dl (8-23); Gamma Glutamyl Transpeptidase 28 U/L (5-36); Uric Acid 5.4 mg/dL (2.5-8.0)
[2018-01-12] MEDS ORDERED: PEG 3350/NA SULF,BICARB,CL/KCL 4,000 ML ORAL.SOL PO ONE (07:00)
[2018-01-12] MEDS: FAMOTIDINE 20 MG TABLET PO SCH (09:07)
[2018-01-12] MEDS: ASPIRIN 81 MG TAB.CHEW PO SCH ×2 (09:07→22:05)
[2018-01-12] MEDS: ISOSORBIDE MONONITRATE 30 MG TAB.XL.24H PO SCH (09:07)
[2018-01-12] MEDS: PROPRANOLOL 60 MG CAP.XL.24H PO SCH (09:07)
[2018-01-12] MEDS: DICYCLOMINE 20 MG TABLET PO SCH ×3 (09:07→22:04)
[2018-01-12] MEDS: ASCORBIC ACID 500 MG TABLET PO SCH (09:07)
[2018-01-12] MEDS: VITAMIN D3 5,000 UNIT CAPSULE PO SCH (09:07)
[2018-01-12] MEDS: TOPIRAMATE 100 MG TABLET PO SCH ×2 (09:09→22:06)
[2018-01-12] MEDS: 0.9 % SODIUM CHLORIDE 10 ML SYRINGE IV SCH ×3 (09:10→22:05)
--- NOTE | 2018-01-12 10:57 | Internal Med Progress Note ---
Medical - PN: Subj Patient information: Note initiated : 01/12/18 at 10:51 am Service Date, if different from initiated Date: [] Patient: Michael Hammond 77 y/o F admitted on 01/07/18 for Diarrhea/C Diff. Chief Complaint: [] Interval history: Patient doing well. Was feeling fine yesterday but reports that overnight because she had been drinking that greasy staff [probably bowel prep] she had to go multiple times [7-8] last 24 hours. Also reports some nausea/vomiting. Denies any belly pain, fever, chills, blood in stools. - Constitutional Vitals: Vital Signs Temp Pulse Resp BP Pulse Ox 97.9 F 61 16 125/68 92 01/12/18 06:53 01/12/18 03:25 01/12/18 06:53 01/12/18 06:53 01/12/18 06:53 Period Temp Pulse Resp BP Sys/Underwood Pulse Ox Last 24 Hr 97.3 F-98.7 F 53-61 16-24 105-134/66-86 92-99 Intake and Output 01/11/18 01/12/18 01/12/18 21:59 05:59 13:59 Intake Total 360 / 360 50 / 50 Output Total 150 / 150 Balance 360 / 360 -100 / -100 Weight 166 lb Intake & Output: Intake & Output 01/11/18 01/12/18 01/12/18 21:59 05:59 13:59 Intake Total 360 / 360 50 / 50 Output Total 150 / 150 Balance 360 / 360 -100 / -100 Weight 166 lb Intake: Oral 360 / 360 50 / 50 Output: Urine/Stool Mix 150 / 150 Other: Meal Lunch Percent of Meal Consumed 75% Stool Size Moderate Small Stool Color Brown Brown Stool Consistency Soft Liquid Loose Loose # Voids 1 1 # Bowel Movements 1 1 # of times incontinent of 1 Bowels General appearance: cooperative, mild distress, obese - GI/Abdominal GI/Abdominal exam: Present: normal bowel sounds, soft. Absent: guarding, rebound, tenderness Medical - PN: Obj Da - Labs CBC & Chem 7: 01/12/18 03:54 01/12/18 03:54 Labs: Abnormal Lab Results 01/12/18 01/12/18 01/11/18 03:54 03:54 04:00 WBC 18.1 H Hgb Hct RDW 15.5 H Gran # 11.7 H [place] # (Auto) 1.6 H Eos # (Auto) 0.8 H Carbon Dioxide 21 L Glucose 67 L Calcium 8.3 L Lactate Dehydrogenase 264 H Total Protein 5.5 L Albumin 2.9 L 2.6 L Albumin/Globulin Ratio 0.9 L 0.9 L Triglycerides 156 H Ur Leukocyte Esterase 01/11/18 01/10/18 01/10/18 04:00 11:00 04:20 WBC 16.4 H Hgb 11.1 L Hct 34.7 L RDW 15.0 H Gran # 10.0 H [place] # (Auto) 1.6 H Eos # (Auto) Carbon Dioxide 21 L Glucose Calcium 8.5 L Lactate Dehydrogenase Total Protein 5.6 L Albumin 2.7 L Albumin/Globulin Ratio 0.9 L Triglycerides Ur Leukocyte Esterase 25 A 01/10/18 04:20 WBC 15.2 H Hgb 11.3 L Hct 35.2 L RDW 15.2 H Gran # 9.5 H [place] # (Auto) 1.2 H Eos # (Auto) Carbon Dioxide Glucose Calcium Lactate Dehydrogenase Total Protein Albumin Albumin/Globulin Ratio Triglycerides Ur Leukocyte Esterase Meds: Medications Hydrocodone Bitart/Acetaminophen ([place] 10/325mg) 1 tab PO Q4-6HP PRN PRN Reason: PAIN LEVEL 3-6 Last Admin: 01/12/18 03:32 Dose: 1 tab Ascorbic Acid (Vitamin C) 500 mg PO DAILY [facility] Last Admin: 01/12/18 09:07 Dose: 500 mg Aspirin (Aspirin) 81 mg PO BID [facility] Last Admin: 01/12/18 09:07 Dose: 81 mg Dicyclomine HCl (Dicyclomine) 20 mg PO QID [facility] Last Admin: 01/12/18 09:07 Dose: 20 mg Famotidine (Pepcid) 20 mg PO QDAY [facility] Last Admin: 01/12/18 09:07 Dose: 20 mg Fish Oil (Fish Oil) 1,000 mg PO DAILY [facility] Last Admin: 01/11/18 09:21 Dose: 1,000 mg Gabapentin (Neurontin) 300 mg PO QHS [facility] Last Admin: 01/11/18 20:40 Dose: 300 mg Isosorbide Mononitrate (Imdur) 30 mg PO DAILY [facility] Last Admin: 01/12/18 09:07 Dose: 30 mg Meclizine HCl (Antivert) 12.5 mg PO QIDP PRN PRN Reason: Nausea Nystatin (Nystatin) 500,000 units SSW QID [facility] Last Admin: 01/11/18 20:40 Dose: 500,000 units Omeprazole (Prilosec) 20 mg PO BIDAC [facility] Last Admin: 01/11/18 16:51 Dose: 20 mg Ondansetron HCl (Zofran) 4 mg IV Q4HP PRN PRN Reason: Nausea And Vomiting Last Admin: 01/10/18 13:06 Dose: 4 mg Propranolol HCl (Inderal La) 60 mg PO QDAY [facility] Last Admin: 01/12/18 09:07 Dose: 60 mg Sodium Chloride (Saline Flush) 10 ml IV Q8 [facility] Last Admin: 01/12/18 09:10 Dose: 10 ml Throat Lozenges (Cepacol) 1 lozenge PO PRN PRN PRN Reason: Sore Throat Last Admin: 01/12/18 03:32 Dose: 1 lozenge Topiramate (Topamax) 100 mg PO BID [facility] Last Admin: 01/12/18 09:09 Dose: 100 mg Verapamil HCl (Calan) 80 mg PO HS [facility] Last Admin: 01/11/18 20:40 Dose: Not Given Vitamin D (Vitamin D3) 5,000 unit PO QDAY [facility] Last Admin: 01/12/18 09:07 Dose: 5,000 unit Medical - PN: A/P - Time Spent With Patient Total time spent is greater than 50% in coordination of care (as documented) at patient's floor/unit and/or counseling patient: 15 - 24 minutes - Narrative A/P Narrative: Assessment: 1. Recurrent C. difficile infection:mild and uncomplicated, recovering -Almost always precipitated by systemic antibiotics - s/p 7 days of dual therapy with oral vancomycin and IV metronidazole 2. No sepsis 3. Leukocytosis: Uptrending white cells may be multifactorial; atelectasis/ pneumonia [although patient does not have clinical signs of pneumonia on exam], C. difficile infection, noninfectious causes such as DVT. Recommendations: -plan for stool transplant today ID will continue to follow while inpatient. Juan Leigh MD Infectious diseases
[2018-01-12] MEDS: OMEPRAZOLE 20 MG CAPSULE PO SCH ×2 (11:47→18:47)
[2018-01-12] MEDS: NYSTATIN 500,000 UNITS/5 ML ORAL.SUSP SSW SCH ×4 (11:48→22:04)
[2018-01-12] MEDS: FISH OIL 1,000 MG CAPSULE PO SCH (11:49)
[2018-01-12] MEDS ORDERED: DEXTROSE 10 % IN WATER 1,000 ML IV SCH (16:00)
--- NOTE | 2018-01-12 16:29 | Internal Med Progress Note ---
Medical - PN: Subj Patient information: Note initiated : 01/12/18 at 4:26 pm Service Date, if different from initiated Date: [] Patient: Michael Hammond a 77 y/o F admitted on 01/07/18 for Diarrhea/C Diff. Chief Complaint: [] Interval history: Ms. Hammond is a 77 year old F s/p treatment for recent flare of diverticulitis and completed 2 weeks antibiotics. She subsequently developed over last few days and followed up with surgery as outpatient 2 days ago.. She was started on dicyclomine by surgery however her symptoms continued to worsen and presents to the ER. During the initial visit she was diagnosed with Cdif ,discharged on oral vancomycin. However for reasons unclear patient did not take oral vancomycin and her symptoms continued to worsen with profuse diarrhea and weakness. She now presents to the ER second time with watery dirrhea, weakness fatigue , exhaustion and hypotension. He denied associated fever or abdominal pain. Initial W/u in ED positive for C Diff white count 11.9, Started on crystalloids and vancomycin PO. Hospitalist service was consulted. At the time of evaluation patient is very lethargic and feels wiped out. She was able to provide history as above. 01/07 Pt seen examined, no acute overnigth issues, K low this am to be replaced still having diarrhea, anxious about her kidneys, concerned vancomycin will cause kidney damage, educated that oral vancdomycin is not absorbed Patient also notes had bronchitis few days ago, and this is her 5th episode of Cdiff this year? She has abdominal cramping, which is unchanged since yesterday. 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 Discussed plan with Dr Puga, plan for xfer to [facility] thursday if they have sample availabe for transplant. Pt does not wish to do a NG tube transplant abdominal pain improving, no other compalints. 01/10 Patient seen and examined still having some diarrhea but no diarrhea overnight. Patient feels better. WBC count slightly up today. Awaiting stool transplant. Case discussed with Dr. Sanders today. He believes he will have stool transplant sample by Thursday at which time we can plan the colonoscopy at [facility]. Chest x-ray was done questionable bibasilar infiltrate, patient does not have much symptoms will avoid use of antibiotics at this time unless patient develops clinical symptoms of pneumonia. Urinalysis negative. We need to hold vancomycin and Flagyl for 2 days before the stool transplant can be done will hold the medications. 01/11 Patient seen and examined, no acute overnight events. Held antibiotics yesterday as per recommendations from GI physician. Plan to do stool transplant tomorrow. Start bowel prep today and tomorrow. Liquid diets tonight. Plan for stool transplant tomorrow evening at [facility]. Patient still has intermittent diarrhea. WBC count trending up slowly. Chest CT shows questionable infiltrate. Pro-calcitonin 0.18. Given the fact that she has C. difficile and is getting prepped for stool transplant will hold off on systemic antibiotics for now unless and until clear symptoms of pnemonia emerge, ID agrees with the plan. 01/12 Patient seen and examined, no acute overnight events, she did do some bowel prep has liquid stools. The patient notes her abdominal pain is not as bad, does admit to having some cough. The patient is scheduled for stool transplant this evening at 5 PM at [facility]. Plan to get the patient back to this hospital after the procedure. The patient denies any chest pain shortness of breath nausea vomiting. She does not have any fever. WBC is trending up slowly. We will monitor this closely. Hoped that her WBC count will start trending down after she has a stool transplant. Pertinent ROS: Denies headache, dizziness Denies chest pain, palpitations Denies cough or shortness of breath Much improved abdominal pain,no nausea or vomiting. - Constitutional Vitals: Vital Signs Temp Pulse Resp BP Pulse Ox 97.8 F 61 18 127/64 92 01/12/18 11:03 01/12/18 03:25 01/12/18 11:03 01/12/18 11:03 01/12/18 11:03 Period Temp Pulse Resp BP Sys/Underwood Pulse Ox Last 24 Hr 97.3 F-98.2 F 53-61 16-24 125-134/64-74 92-99 Intake and Output 01/12/18 01/12/18 01/12/18 05:59 13:59 21:59 Intake Total 50 / 50 Output Total 150 / 150 751 / 751 Balance -100 / -100 -751 / -751 Intake & Output: Intake & Output 01/12/18 01/12/18 01/12/18 05:59 13:59 21:59 Intake Total 50 / 50 Output Total 150 / 150 751 / 751 Balance -100 / -100 -751 / -751 Intake: Oral 50 / 50 Output: Urine Catheter Amount 750 / 750 Void Amount 1 / 1 Urine/Stool Mix 150 / 150 Other: Stool Size Small Smear Stool Color Brown Brown Stool Consistency Liquid Soft Loose # Voids 1 # Bowel Movements 1 1 Exam: Constitutional; Afebrile, cooperative, alert, not in distress. Respiratory system: Air Entry equal on both sides, No crackles or wheezing, no rhonchi. CVS- Rate rhythm regular, S1,S2 heard, no gallop, no rub. 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 Medical - PN: Obj Da - Labs CBC & Chem 7: 01/12/18 03:54 01/12/18 03:54 Labs: Abnormal Lab Results 01/12/18 01/12/18 01/11/18 03:54 03:54 04:00 WBC 18.1 H Hgb Hct RDW 15.5 H Gran # 11.7 H [place] # (Auto) 1.6 H Eos # (Auto) 0.8 H Carbon Dioxide 21 L Glucose 67 L Calcium 8.3 L Lactate Dehydrogenase 264 H Total Protein 5.5 L Albumin 2.9 L 2.6 L Albumin/Globulin Ratio 0.9 L 0.9 L Triglycerides 156 H Ur Leukocyte Esterase 01/11/18 01/10/18 01/10/18 04:00 11:00 04:20 WBC 16.4 H Hgb 11.1 L Hct 34.7 L RDW 15.0 H Gran # 10.0 H [place] # (Auto) 1.6 H Eos # (Auto) Carbon Dioxide 21 L Glucose Calcium 8.5 L Lactate Dehydrogenase Total Protein 5.6 L Albumin 2.7 L Albumin/Globulin Ratio 0.9 L Triglycerides Ur Leukocyte Esterase 25 A 01/10/18 04:20 WBC 15.2 H Hgb 11.3 L Hct 35.2 L RDW 15.2 H Gran # 9.5 H [place] # (Auto) 1.2 H Eos # (Auto) Carbon Dioxide Glucose Calcium Lactate Dehydrogenase Total Protein Albumin Albumin/Globulin Ratio Triglycerides Ur Leukocyte Esterase Meds: Medications Hydrocodone Bitart/Acetaminophen ([place] 10/325mg) 1 tab PO Q4-6HP PRN PRN Reason: PAIN LEVEL 3-6 Last Admin: 01/12/18 11:47 Dose: 1 tab Ascorbic Acid (Vitamin C) 500 mg PO DAILY [facility] Last Admin: 01/12/18 09:07 Dose: 500 mg Aspirin (Aspirin) 81 mg PO BID [facility] Last Admin: 01/12/18 09:07 Dose: 81 mg Dicyclomine HCl (Dicyclomine) 20 mg PO QID [facility] Last Admin: 01/12/18 09:07 Dose: 20 mg Famotidine (Pepcid) 20 mg PO QDAY [facility] Last Admin: 01/12/18 09:07 Dose: 20 mg Fish Oil (Fish Oil) 1,000 mg PO DAILY [facility] Last Admin: 01/12/18 11:49 Dose: 1,000 mg Gabapentin (Neurontin) 300 mg PO QHS [facility] Last Admin: 01/11/18 20:40 Dose: 300 mg Dextrose (Dextrose 10%-Water Iv Solution) 1,000 mls @ 25 mls/hr IV .Q24H [facility] Isosorbide Mononitrate (Imdur) 30 mg PO DAILY [facility] Last Admin: 01/12/18 09:07 Dose: 30 mg Meclizine HCl (Antivert) 12.5 mg PO QIDP PRN PRN Reason: Nausea Nystatin (Nystatin) 500,000 units SSW QID [facility] Last Admin: 01/12/18 14:11 Dose: Not Given Omeprazole (Prilosec) 20 mg PO BIDAC [facility] Last Admin: 01/12/18 11:47 Dose: 20 mg Ondansetron HCl (Zofran) 4 mg IV Q4HP PRN PRN Reason: Nausea And Vomiting Last Admin: 01/10/18 13:06 Dose: 4 mg Propranolol HCl (Inderal La) 60 mg PO QDAY [facility] Last Admin: 01/12/18 09:07 Dose: 60 mg Sodium Chloride (Saline Flush) 10 ml IV Q8 [facility] Last Admin: 01/12/18 09:10 Dose: 10 ml Throat Lozenges (Cepacol) 1 lozenge PO PRN PRN PRN Reason: Sore Throat Last Admin: 01/12/18 03:32 Dose: 1 lozenge Topiramate (Topamax) 100 mg PO BID [facility] Last Admin: 01/12/18 09:09 Dose: 100 mg Verapamil HCl (Calan) 80 mg PO HS [facility] Last Admin: 01/11/18 20:40 Dose: Not Given Vitamin D (Vitamin D3) 5,000 unit PO QDAY [facility] Last Admin: 01/12/18 09:07 Dose: 5,000 unit Medical - PN: A/P - Time Spent With Patient Total time spent is greater than 50% in coordination of care (as documented) at patient's floor/unit and/or counseling patient: - Narrative A/P Narrative: A/P Recurrent Cdiff diarrhea-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 Hypotension- bp stable now, resumed propranolol, Hypoglycemia- decreased oral intake, will start on d10 drip to ensure no hypoglycemia during EGD, resume oral diet , pt notes h/o low glucose values since childhood oropharyngeal guilherme- Nystatin ssw for now, TIMOTHY- resolved. h/o recent diverticulitis chart reviewed, was been seen by Dr Pennington for same, on cipro flagyl it seems Neuropathy- on neurontin, continue same Anxiety- on effexor, and propranolol Abdominal cramping- due to colitis, dicyclomine , improving. Pulmonary infiltrates-possible pneumonia developing, given need for stool transplant will hold off on antibiotics no clinical evidence of sepsis infectious disease doctor following. DVT hep sq Full code
[2018-01-12] MEDS ORDERED: LOPERAMIDE 2 MG CAPSULE PO ONE (22:00)
[2018-01-12] MEDS: GABAPENTIN 300 MG CAPSULE PO SCH (22:04)
[2018-01-12] MEDS: VERAPAMIL HCL 80 MG TABLET PO SCH (22:07)
[2018-01-13 06:17] LABS: Basophils # (Auto) 0 K/mcL (0.0-0.3); Basophils % (Auto) 0.3 % (0.0-2.0); Eosinophils # (Auto) 0.5 K/mcL (0.0-0.7); Eosinophils % (Auto) 2.9 % (0.0-7.0); Granulocytes % (Auto) 71.1 % (38.0-78.0); Lymphocytes # (Auto) 2.9 K/mcL (1.5-4.8); Mean Cell Volume 83.1 fL (80.0-100.0); Mean Corpuscular HGB Conc 31.6 g/dL (31.0-36.0); Mean Corpuscular Hemoglobin 26.3 pg (26.0-34.0); Monocytes # (Auto) 1.2 K/mcL (0.1-0.9); Monocytes % (Auto) 7.7 % (1.0-12.0); Platelet Count 297 K/mcL (140-440); RBC 4.54 M/mcL (4.00-5.20); Red Cell Distribution Width 15.2 % (11.5-14.5)
[2018-01-13 06:55] LABS: ALT/SGPT 7 U/l (0-40); Albumin 2.8 gm/dL (3.2-5.2); Albumin/Globulin Ratio 0.9 (1.0-2.3); Alkaline Phosphatase 58 U/L (39-117); Bilirubin,Direct < 0.2 mg/dL (0.0-0.3); Blood Urea Nitrogen 10 mg/dl (8-23); Gamma Glutamyl Transpeptidase 28 U/L (5-36); Uric Acid 5.9 mg/dL (2.5-8.0)
[2018-01-13] MEDS ORDERED: LOPERAMIDE 2 MG CAPSULE PO ONE ×2 (08:00→15:00)
[2018-01-13] MEDS: 0.9 % SODIUM CHLORIDE 10 ML SYRINGE IV SCH ×3 (08:12→20:46)
[2018-01-13] MEDS: OMEPRAZOLE 20 MG CAPSULE PO SCH ×2 (08:13→17:30)
[2018-01-13] MEDS: ASCORBIC ACID 500 MG TABLET PO SCH (08:13)
[2018-01-13] MEDS: ISOSORBIDE MONONITRATE 30 MG TAB.XL.24H PO SCH (08:13)
[2018-01-13] MEDS: ASPIRIN 81 MG TAB.CHEW PO SCH ×2 (08:13→20:45)
[2018-01-13] MEDS: PROPRANOLOL 60 MG CAP.XL.24H PO SCH (08:13)
[2018-01-13] MEDS: TOPIRAMATE 100 MG TABLET PO SCH ×2 (08:13→20:46)
[2018-01-13] MEDS: VITAMIN D3 5,000 UNIT CAPSULE PO SCH (08:13)
[2018-01-13] MEDS: DICYCLOMINE 20 MG TABLET PO SCH ×4 (08:13→20:45)
[2018-01-13] MEDS: NYSTATIN 500,000 UNITS/5 ML ORAL.SUSP SSW SCH ×4 (08:13→20:46)
[2018-01-13] MEDS: FAMOTIDINE 20 MG TABLET PO SCH (08:13)
[2018-01-13] MEDS: FISH OIL 1,000 MG CAPSULE PO SCH (08:14)
--- NOTE | 2018-01-13 11:38 | Internal Med Progress Note ---
Medical - PN: Subj Patient information: Note initiated : 01/13/18 at 11:36 am Service Date, if different from initiated Date: [] Patient: Michael Hammond a 77 y/o F admitted on 01/07/18 for Diarrhea/C Diff. Chief Complaint: [] Interval history: Ms. Hammond is a 77 year old F s/p treatment for recent flare of diverticulitis and completed 2 weeks antibiotics. She subsequently developed over last few days and followed up with surgery as outpatient 2 days ago.. She was started on dicyclomine by surgery however her symptoms continued to worsen and presents to the ER. During the initial visit she was diagnosed with Cdif ,discharged on oral vancomycin. However for reasons unclear patient did not take oral vancomycin and her symptoms continued to worsen with profuse diarrhea and weakness. She now presents to the ER second time with watery dirrhea, weakness fatigue , exhaustion and hypotension. He denied associated fever or abdominal pain. Initial W/u in ED positive for C Diff white count 11.9, Started on crystalloids and vancomycin PO. Hospitalist service was consulted. At the time of evaluation patient is very lethargic and feels wiped out. She was able to provide history as above. 01/07 Pt seen examined, no acute overnigth issues, K low this am to be replaced still having diarrhea, anxious about her kidneys, concerned vancomycin will cause kidney damage, educated that oral vancdomycin is not absorbed Patient also notes had bronchitis few days ago, and this is her 5th episode of Cdiff this year? She has abdominal cramping, which is unchanged since yesterday. 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 Discussed plan with Dr Puga, plan for xfer to [facility] thursday if they have sample availabe for transplant. Pt does not wish to do a NG tube transplant abdominal pain improving, no other compalints. 01/10 Patient seen and examined still having some diarrhea but no diarrhea overnight. Patient feels better. WBC count slightly up today. Awaiting stool transplant. Case discussed with Dr. Sanders today. He believes he will have stool transplant sample by Thursday at which time we can plan the colonoscopy at [facility]. Chest x-ray was done questionable bibasilar infiltrate, patient does not have much symptoms will avoid use of antibiotics at this time unless patient develops clinical symptoms of pneumonia. Urinalysis negative. We need to hold vancomycin and Flagyl for 2 days before the stool transplant can be done will hold the medications. 01/11 Patient seen and examined, no acute overnight events. Held antibiotics yesterday as per recommendations from GI physician. Plan to do stool transplant tomorrow. Start bowel prep today and tomorrow. Liquid diets tonight. Plan for stool transplant tomorrow evening at [facility]. Patient still has intermittent diarrhea. WBC count trending up slowly. Chest CT shows questionable infiltrate. Pro-calcitonin 0.18. Given the fact that she has C. difficile and is getting prepped for stool transplant will hold off on systemic antibiotics for now unless and until clear symptoms of pnemonia emerge, ID agrees with the plan. 01/12 Patient seen and examined, no acute overnight events, she did do some bowel prep has liquid stools. The patient notes her abdominal pain is not as bad, does admit to having some cough. The patient is scheduled for stool transplant this evening at 5 PM at [facility]. Plan to get the patient back to this hospital after the procedure. The patient denies any chest pain shortness of breath nausea vomiting. She does not have any fever. WBC is trending up slowly. We will monitor this closely. Hoped that her WBC count will start trending down after she has a stool transplant. 01/13 Patient seen examined, no acute overnight issues, stomach cramping yesterday resolved todeay s/p stool transplant wbc trending down has low grade temp but no other complaints. Pertinent ROS: Denies headache, dizziness Denies chest pain, palpitations Denies cough or shortness of breath Denies abdominal pain, nausea or vomiting. - Constitutional Vitals: Vital Signs Temp Pulse Resp BP Pulse Ox 97.3 F 54 L 16 111/65 94 01/13/18 07:37 01/13/18 08:15 01/13/18 08:15 01/13/18 07:37 01/13/18 08:15 Period Temp Pulse Resp BP Sys/Underwood Pulse Ox Last 24 Hr 97.3 F-99.5 F 52-62 16-24 108-130/64-74 60-98 Intake and Output 01/12/18 01/13/18 01/13/18 21:59 05:59 13:59 Intake Total 200 / 200 200 / 200 Output Total 200 / 200 200 / 200 Balance -200 / -200 0 / 0 200 / 200 Weight 163 lb Intake & Output: Intake & Output 01/12/18 01/13/18 01/13/18 21:59 05:59 13:59 Intake Total 200 / 200 200 / 200 Output Total 200 / 200 200 / 200 Balance -200 / -200 0 / 0 200 / 200 Weight 163 lb Intake: Oral 200 / 200 200 / 200 Output: Void Amount 200 / 200 200 / 200 Other: Meal sandwhich Breakfast Percent of Meal Consumed 100% 100% Feeding Ability Independent Stool Size Small Small Stool Color Brown Brown Green Stool Consistency Loose Loose # of times incontinent of 1 Bowels Exam: Constitutional; Afebrile, cooperative, alert, not in distress. Respiratory system: Air Entry equal on both sides, No crackles or wheezing, no rhonchi. CVS- Rate rhythm regular, S1,S2 heard, no gallop, no rub. Abdomen- Soft nontender abdomen, no organomegaly, no tenderness, no guarding or rigidity, MANAGER BODY- AOOx3, moving all extremities, no gross focal deficit noted. Medical - PN: Obj Da - Labs CBC & Chem 7: 01/13/18 04:29 01/13/18 04:29 Labs: Abnormal Lab Results 01/13/18 01/13/18 01/12/18 04:29 04:29 03:54 WBC 16.0 H Hgb 11.9 L Hct RDW 15.2 H Gran # 11.3 H [place] # (Auto) 1.2 H Eos # (Auto) Carbon Dioxide 20 L Glucose 67 L Calcium Lactate Dehydrogenase 264 H Total Protein Albumin 2.8 L 2.9 L Albumin/Globulin Ratio 0.9 L 0.9 L Triglycerides 156 H Ur Leukocyte Esterase 01/12/18 01/11/18 01/11/18 03:54 04:00 04:00 WBC 18.1 H 16.4 H Hgb 11.1 L Hct 34.7 L RDW 15.5 H 15.0 H Gran # 11.7 H 10.0 H [place] # (Auto) 1.6 H 1.6 H Eos # (Auto) 0.8 H Carbon Dioxide 21 L Glucose Calcium 8.3 L Lactate Dehydrogenase Total Protein 5.5 L Albumin 2.6 L Albumin/Globulin Ratio 0.9 L Triglycerides Ur Leukocyte Esterase 01/10/18 11:00 WBC Hgb Hct RDW Gran # [place] # (Auto) Eos # (Auto) Carbon Dioxide Glucose Calcium Lactate Dehydrogenase Total Protein Albumin Albumin/Globulin Ratio Triglycerides Ur Leukocyte Esterase 25 A Meds: Medications Hydrocodone Bitart/Acetaminophen ([place] 10/325mg) 1 tab PO Q4-6HP PRN PRN Reason: PAIN LEVEL 3-6 Last Admin: 01/12/18 22:04 Dose: 1 tab Ascorbic Acid (Vitamin C) 500 mg PO DAILY [facility] Last Admin: 01/13/18 08:13 Dose: 500 mg Aspirin (Aspirin) 81 mg PO BID [facility] Last Admin: 01/13/18 08:13 Dose: 81 mg Dicyclomine HCl (Dicyclomine) 20 mg PO QID [facility] Last Admin: 01/13/18 08:13 Dose: 20 mg Famotidine (Pepcid) 20 mg PO QDAY [facility] Last Admin: 01/13/18 08:13 Dose: 20 mg Fish Oil (Fish Oil) 1,000 mg PO DAILY [facility] Last Admin: 01/13/18 08:14 Dose: 1,000 mg Gabapentin (Neurontin) 300 mg PO QHS [facility] Last Admin: 01/12/18 22:04 Dose: 300 mg Dextrose (Dextrose 10%-Water Iv Solution) 1,000 mls @ 25 mls/hr IV .Q24H [facility] Last Admin: 01/12/18 22:07 Dose: Not Given Isosorbide Mononitrate (Imdur) 30 mg PO DAILY [facility] Last Admin: 01/13/18 08:13 Dose: 30 mg Meclizine HCl (Antivert) 12.5 mg PO QIDP PRN PRN Reason: Nausea Nystatin (Nystatin) 500,000 units SSW QID [facility] Last Admin: 01/13/18 08:13 Dose: 500,000 units Omeprazole (Prilosec) 20 mg PO BIDAC [facility] Last Admin: 01/13/18 08:13 Dose: 20 mg Ondansetron HCl (Zofran) 4 mg IV Q4HP PRN PRN Reason: Nausea And Vomiting Last Admin: 01/10/18 13:06 Dose: 4 mg Propranolol HCl (Inderal La) 60 mg PO QDAY [facility] Last Admin: 01/13/18 08:13 Dose: 60 mg Sodium Chloride (Saline Flush) 10 ml IV Q8 [facility] Last Admin: 01/13/18 08:12 Dose: 10 ml Throat Lozenges (Cepacol) 1 lozenge PO PRN PRN PRN Reason: Sore Throat Last Admin: 01/12/18 03:32 Dose: 1 lozenge Topiramate (Topamax) 100 mg PO BID [facility] Last Admin: 01/13/18 08:13 Dose: 100 mg Verapamil HCl (Calan) 80 mg PO HS [facility] Last Admin: 01/12/18 22:07 Dose: 80 mg Vitamin D (Vitamin D3) 5,000 unit PO QDAY [facility] Last Admin: 01/13/18 08:13 Dose: 5,000 unit Medical - PN: A/P - Time Spent With Patient Total time spent is greater than 50% in coordination of care (as documented) at patient's floor/unit and/or counseling patient: - Narrative A/P Narrative: A/P 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 No pseudomembranes noted on the colonoscopy Hypotension- bp stable now, resumed propranolol, Hypoglycemia- resolved. oropharyngeal guilherme- Nystatin ssw for now, TIMOTHY- resolved. h/o recent diverticulitis chart reviewed, was been seen by Dr Pennington for same, Colonscopy showed no diverticulitis, significant diverticulosis. Neuropathy- on neurontin, continue same Anxiety- on effexor, and propranolol Abdominal cramping- due to colitis, dicyclomine ,resolved now. Pulmonary infiltrates-possible pneumonia developing, given need for stool transplant will hold off on antibiotics no clinical evidence of sepsis infectious disease doctor following. DVT hep sq Full code
--- NOTE | 2018-01-13 15:30 | Internal Med Progress Note ---
Medical - PN: Subj Patient information: Note initiated : 01/13/18 at 3:26 pm Service Date, if different from initiated Date: [] Patient: Michael Hammond 77 y/o F admitted on 01/07/18 for Diarrhea/C Diff. Chief Complaint: [] Interval history: Patient got his stool transplant through colonoscopy yesterday evening. She mentioned that after transplant she had some leakage but she was counseled to be in her left lateral position and also was prescribed Imodium to help retain the transplanted stools. She denies any chills but endorses low-grade fever last night. Denies any belly pain, nausea, vomiting. - Constitutional Vitals: Vital Signs Temp Pulse Resp BP Pulse Ox 36.5 C 53 L 18 106/62 95 01/13/18 12:26 01/13/18 12:26 01/13/18 12:26 01/13/18 12:26 01/13/18 12:26 Period Temp Pulse Resp BP Sys/Underwood Pulse Ox Last 24 Hr 36.3 C-37.5 C 52-62 16-24 106-130/62-74 60-98 Intake and Output 01/13/18 01/13/18 01/13/18 05:59 13:59 21:59 Intake Total 200 / 200 400 / 400 Output Total 200 / 200 Balance 0 / 0 400 / 400 Intake & Output: Intake & Output 01/13/18 01/13/18 01/13/18 05:59 13:59 21:59 Intake Total 200 / 200 400 / 400 Output Total 200 / 200 Balance 0 / 0 400 / 400 Intake: Oral 200 / 200 400 / 400 Output: Void Amount 200 / 200 Other: Meal sandwhich Breakfast Percent of Meal Consumed 100% 100% Feeding Ability Independent Stool Size Small Stool Color Brown Green Stool Consistency Loose General appearance: cooperative, no acute distress, obese - GI/Abdominal GI/Abdominal exam: Present: normal bowel sounds, soft, distended. Absent: guarding, tenderness Medical - PN: Obj Da - Labs CBC & Chem 7: 01/13/18 04:29 01/13/18 04:29 Labs: Abnormal Lab Results 01/13/18 01/13/18 01/12/18 04:29 04:29 03:54 WBC 16.0 H Hgb 11.9 L Hct RDW 15.2 H Gran # 11.3 H Dougherty # (Auto) 1.2 H Eos # (Auto) Carbon Dioxide 20 L Glucose 67 L Calcium Lactate Dehydrogenase 264 H Total Protein Albumin 2.8 L 2.9 L Albumin/Globulin Ratio 0.9 L 0.9 L Triglycerides 156 H 01/12/18 01/11/18 01/11/18 03:54 04:00 04:00 WBC 18.1 H 16.4 H Hgb 11.1 L Hct 34.7 L RDW 15.5 H 15.0 H Gran # 11.7 H 10.0 H Dougherty # (Auto) 1.6 H 1.6 H Eos # (Auto) 0.8 H Carbon Dioxide 21 L Glucose Calcium 8.3 L Lactate Dehydrogenase Total Protein 5.5 L Albumin 2.6 L Albumin/Globulin Ratio 0.9 L Triglycerides Meds: Medications Hydrocodone Bitart/Acetaminophen ([place] 10/325mg) 1 tab PO Q4-6HP PRN PRN Reason: PAIN LEVEL 3-6 Last Admin: 01/12/18 22:04 Dose: 1 tab Ascorbic Acid (Vitamin C) 500 mg PO DAILY [facility] Last Admin: 01/13/18 08:13 Dose: 500 mg Aspirin (Aspirin) 81 mg PO BID [facility] Last Admin: 01/13/18 08:13 Dose: 81 mg Dicyclomine HCl (Dicyclomine) 20 mg PO QID [facility] Last Admin: 01/13/18 12:22 Dose: 20 mg Famotidine (Pepcid) 20 mg PO QDAY [facility] Last Admin: 01/13/18 08:13 Dose: 20 mg Fish Oil (Fish Oil) 1,000 mg PO DAILY [facility] Last Admin: 01/13/18 08:14 Dose: 1,000 mg Gabapentin (Neurontin) 300 mg PO QHS [facility] Last Admin: 01/12/18 22:04 Dose: 300 mg Isosorbide Mononitrate (Imdur) 30 mg PO DAILY [facility] Last Admin: 01/13/18 08:13 Dose: 30 mg Meclizine HCl (Antivert) 12.5 mg PO QIDP PRN PRN Reason: Nausea Nystatin (Nystatin) 500,000 units SSW QID [facility] Last Admin: 01/13/18 12:22 Dose: 500,000 units Omeprazole (Prilosec) 20 mg PO BIDAC [facility] Last Admin: 01/13/18 08:13 Dose: 20 mg Ondansetron HCl (Zofran) 4 mg IV Q4HP PRN PRN Reason: Nausea And Vomiting Last Admin: 01/10/18 13:06 Dose: 4 mg Propranolol HCl (Inderal La) 60 mg PO QDAY [facility] Last Admin: 01/13/18 08:13 Dose: 60 mg Sodium Chloride (Saline Flush) 10 ml IV Q8 [facility] Last Admin: 01/13/18 14:15 Dose: 10 ml Throat Lozenges (Cepacol) 1 lozenge PO PRN PRN PRN Reason: Sore Throat Last Admin: 01/12/18 03:32 Dose: 1 lozenge Topiramate (Topamax) 100 mg PO BID [facility] Last Admin: 01/13/18 08:13 Dose: 100 mg Verapamil HCl (Calan) 80 mg PO HS [facility] Last Admin: 01/12/18 22:07 Dose: 80 mg Vitamin D (Vitamin D3) 5,000 unit PO QDAY [facility] Last Admin: 01/13/18 08:13 Dose: 5,000 unit Medical - PN: A/P - Time Spent With Patient Total time spent is greater than 50% in coordination of care (as documented) at patient's floor/unit and/or counseling patient: less than 15 minutes - Narrative A/P Narrative: Assessment: 1. Recurrent C. difficile infection:mild and uncomplicated, recovering -Almost always precipitated by systemic antibiotics - s/p stool transplant [colonoscopy] and 7 days of dual therapy with oral vancomycin and IV metronidazole 2. No sepsis 3. Leukocytosis: Downtrending Recommendations: -We will continue to observe to make sure the white cell count come down, and patient does not have any symptoms such as diarrhea, belly pain, fever -No antibiotic recommendations at this point Juan Leigh MD Infectious diseases
[2018-01-13] MEDS: HYDROcodone/APAP 10/325MG TABLET PO PRN (17:30)
[2018-01-13] MEDS: VERAPAMIL HCL 80 MG TABLET PO SCH (20:45)
[2018-01-13] MEDS: GABAPENTIN 300 MG CAPSULE PO SCH (20:45)
[2018-01-14] MEDS: BENZOCAINE/MENTHOL 1 LOZENGE PO PRN ×2 (00:50→12:46)
[2018-01-14] MEDS: HYDROcodone/APAP 10/325MG TABLET PO PRN (03:24)
[2018-01-14 05:59] LABS: Basophils # (Auto) 0.1 K/mcL (0.0-0.3); Basophils % (Auto) 0.5 % (0.0-2.0); Eosinophils # (Auto) 0.7 K/mcL (0.0-0.7); Eosinophils % (Auto) 5.6 % (0.0-7.0); Granulocytes % (Auto) 53.4 % (38.0-78.0); Lymphocytes # (Auto) 4.1 K/mcL (1.5-4.8); Mean Cell Volume 86.2 fL (80.0-100.0); Mean Corpuscular HGB Conc 32.8 g/dL (31.0-36.0); Mean Corpuscular Hemoglobin 28.3 pg (26.0-34.0); Monocytes # (Auto) 1.3 K/mcL (0.1-0.9); Monocytes % (Auto) 9.5 % (1.0-12.0); Platelet Count 302 K/mcL (140-440); RBC 3.98 M/mcL (4.00-5.20); Red Cell Distribution Width 15.2 % (11.5-14.5)
[2018-01-14] MEDS: 0.9 % SODIUM CHLORIDE 10 ML SYRINGE IV SCH (06:08)
[2018-01-14 06:45] LABS: ALT/SGPT 6 U/l (0-40); Albumin 2.7 gm/dL (3.2-5.2); Albumin/Globulin Ratio 0.9 (1.0-2.3); Alkaline Phosphatase 54 U/L (39-117); Bilirubin,Direct < 0.2 mg/dL (0.0-0.3); Blood Urea Nitrogen 12 mg/dl (8-23); Gamma Glutamyl Transpeptidase 27 U/L (5-36); Uric Acid 5.3 mg/dL (2.5-8.0)
[2018-01-14] MEDS: NYSTATIN 500,000 UNITS/5 ML ORAL.SUSP SSW SCH ×2 (08:12→12:37)
[2018-01-14] MEDS: ASCORBIC ACID 500 MG TABLET PO SCH (08:12)
[2018-01-14] MEDS: ASPIRIN 81 MG TAB.CHEW PO SCH (08:12)
[2018-01-14] MEDS: FAMOTIDINE 20 MG TABLET PO SCH (08:12)
[2018-01-14] MEDS: ISOSORBIDE MONONITRATE 30 MG TAB.XL.24H PO SCH (08:12)
[2018-01-14] MEDS: OMEPRAZOLE 20 MG CAPSULE PO SCH (08:12)
[2018-01-14] MEDS: TOPIRAMATE 100 MG TABLET PO SCH (08:12)
[2018-01-14] MEDS: PROPRANOLOL 60 MG CAP.XL.24H PO SCH (08:12)
[2018-01-14] MEDS: FISH OIL 1,000 MG CAPSULE PO SCH (08:12)
[2018-01-14] MEDS: DICYCLOMINE 20 MG TABLET PO SCH ×2 (08:12→12:37)
[2018-01-14] MEDS: VITAMIN D3 5,000 UNIT CAPSULE PO SCH (08:12)
--- NOTE | 2018-01-14 10:21 | Discharge Summary ---
Medical - DS: Prov Patient information: Note initiated : 01/14/18 at 10:15 am Service Date, if different from initiated Date: [] Patient: Michael Hammond 77 y/o F admitted on 01/07/18 for Diarrhea/C Diff. Chief Complaint: [] Date of admission: 01/07/18 00:57 Discharge date: 01/14/18 Primary care physician: Liyah Rey MD Admitting clinician: Alberto Luke Consults: 01/06/18 23:51 Consult to Physician [CONS] Stat Comment: Consulting Provider: Seth Rojo Reason For Exam: Physician to Consult 01/07/18 17:29 Consult to Physician [CONS] Routine Comment: Recurrent Cdiff Consulting Provider: Juan Leigh Reason For Exam: Physician to Consult Discharging clinician: Alberto Luke Medical - DS: Meds - Discharge Medications Prescriptions: HYDROcodone/APAP 10/325MG [Preston 10-325Mg] 1 tab PO Q6HP PRN #30 tab PRN Reason: Pain Active and Home Medications: Home Medications Ascorbate Calcium [Vitamin C] 500 mg PO DAILY 02/28/17 [History Confirmed Last Taken 12/18/17] Gabapentin [Neurontin] 300 mg PO QHS 02/28/17 [History Confirmed 01/07/18 Last Taken 01/01/18] Isosorbide Mononitrate [Imdur] 30 mg PO DAILY #30 tab.xl.24h 02/28/17 [Rx Confirmed 01/07/18 Last Taken 12/18/17] Meclizine HCl [Verticalm] 12.5 mg PO QIDP PRN 02/28/17 [History Confirmed Last Taken 12/14/17] Verapamil HCl 80 mg PO DAILY 02/28/17 [History Confirmed 01/07/18 Last Taken ] Omeprazole [PriLOSEC] 20 mg PO BIDAC 06/17/17 [History Confirmed 01/07/18 Last Taken 01/01/18] aspirin 81 mg tablet,delayed release 81 mg PO BID 11/11/17 [History Confirmed Last Taken 01/01/18] [id number] See Label Instructions PO Q6H PRN 11/11/17 [ History Confirmed 01/07/18 Last Taken 01/01/18] cholecalciferol (vitamin D3) 5,000 unit capsule 5,000 unit PO QDAY 11/11/17 [ History Confirmed 01/07/18 Last Taken 01/01/18] famotidine 20 mg tablet 20 mg PO QDAY 11/11/17 [History Confirmed 01/07/18 Last Taken Unknown] ferrous sulfate 325 mg (65 mg iron) tablet 325 mg PO QDAY tab 11/11/17 [ History Confirmed 01/07/18 Last Taken 01/01/18] hydrocodone 10 mg-acetaminophen 325 mg tablet 1 tab PO .Q4-6H tab 11/11/17 [ History Confirmed 01/07/18 Last Taken 01/01/18] lecithin 1,200 mg capsule 1,200 mg PO BID cap 11/11/17 [History Confirmed 01/07 Last Taken 01/01/18] multivitamin with minerals 1 cap PO BID 11/11/17 [History Confirmed 01/07/18 Last Taken 01/01/18] omega 0-xqr-noh-fish oil 1,000 mg (120 mg-180 mg) capsule 3 cap PO QDAY cap [History Confirmed 01/07/18 Last Taken 12/25/17] omega-3 fatty acids-fish oil 1 cap PO QDAY 11/11/17 [History Confirmed 01/07/18 Last Taken Unknown] polyethylene glycol 3350 17 g PO QAM 11/11/17 [History Confirmed 01/07/18 Last Taken 01/01/18] propranolol ER 60 mg capsule,24 hr,extended release 60 mg PO QDAY 11/11/17 [ History Confirmed 01/07/18 Last Taken 01/01/18] sucralfate 1 gram tablet 1 g PO QDAY tab 11/11/17 [History Confirmed 01/07/18 Last Taken Unknown] topiramate 200 mg tablet 100 mg PO BID 11/11/17 [History Confirmed 01/07/18 Last Taken Unknown] zoledronic swhe-qjlcowcc-rustg IV .Annually 11/11/17 [History Confirmed Last Taken Unknown] hydrocortisone 2.5 % topical cream with perineal applicator 1 applic OK QD-BID PRN #30 g 11/26/17 [Rx Confirmed 01/07/18 Last Taken 12/13/17] metronidazole 500 mg tablet 500 mg PO TID #40 tab 12/02/17 [Rx Confirmed Last Taken 01/01/18] bismuth subsalicylate 1 dose PO ONCE PRN 12/21/17 [History Confirmed 01/07/18 Last Taken 01/01/18] Banana Flakes/Tos [Banatrol Plus Powder Packet] 1 each PO TID #90 powd.pack [Rx Confirmed 01/07/18 Last Taken Unknown] Vancomycin [Vancocin] 125 mg PO QID #90 cap 01/02/18 [Rx Confirmed 01/07/18 Last Taken Unknown] dicyclomine 20 mg tablet 20 mg PO QID #120 tab 01/06/18 [Rx Confirmed 01/07/18 Last Taken Unknown] Medical - DS: Hosp Hospital course: Ms. Hammond is a 77 year old F s/p treatment for recent flare of diverticulitis and completed 2 weeks antibiotics. She subsequently developed over last few days and followed up with surgery as outpatient 2 days ago.. She was started on dicyclomine by surgery however her symptoms continued to worsen and presents to the ER. During the initial visit she was diagnosed with Cdiff ,discharged on oral vancomycin. However for reasons unclear patient did not take oral vancomycin and her symptoms continued to worsen with profuse diarrhea and weakness. She now presents to the ER second time with watery diarrhea, weakness fatigue , exhaustion and hypotension. He denied associated fever or abdominal pain. Initial W/u in ED positive for C Diff white count 11.9, Started on crystalloids and vancomycin PO. Hospitalist service was consulted. At the time of evaluation patient is very lethargic and feels wiped out. Recurrent Cdiff, as per patient 5th episode Pt Cdiff results for this year 06/27/16- Cdiff PCR positive 07/24/17- Cdiff PCR positive 07/24/17- Stool cultures negative 08/11/17- Cdiff pcr negative 08/20/17 Cdiff pcr positive 01/01/18 Cdiff GDH negative 01/06/18- CDiff GDH positive Initially treated with vancomycin and flagyl, pt responded to treatment somewhat but her WBC count kept trending up, she also had low albumin. Infectious disease consulted, who advised stool transplant. Dr Marilyn ADAMS from [facility], performed the stool transplant for the patient, after which her wbc count started to come down. patient did get Imodium post stool transplant to ensure that stool retains in the colon as long as possible. The patient has not had a BM today, explained that she will take 2-4 days to have a BM as her GI tract is empty. Pneumoina? _ the patient had some cough and CXR and CT chest suggestive of possible infiltrate, patient otherwise did not shows signs of pulmonary infection, given that have Seveer Cdiff needing stool transplant, decision was made not to treat this. The patient clinically improved after stool transplant and hence we are holding off on any further antibiotics. The rest of the stay in the hospital is uneventful, pt is weak post her acute stay, will be discharged to SNF Discharge diagnosis: Cdiff diarrhea/ Colitis - Time Spent with Patient Total time spent providing and/or coordinating discharge services: Greater than 30 minutes Medical - DS: Exam - Constitutional Vitals: Vital Signs Temp Pulse Pulse Resp BP BP Pulse Ox 01/14/18 08:10 56 L 16 95 01/14/18 07:09 97.8 F 53 L 12 127/66 95 01/14/18 03:26 98.1 F 56 L 14 114/56 93 01/14/18 00:13 98.4 F 55 L 14 95/56 94 01/13/18 20:00 98.3 F 55 L 16 116/75 95 01/13/18 16:00 97.3 F 69 14 110/58 94 01/13/18 12:26 97.7 F 53 L 18 106/62 95 Intake and Output 01/13/18 01/14/18 01/14/18 21:59 05:59 13:59 Intake Total 390 / 390 325 / 325 Output Total 600 / 600 150 / 150 120 / 120 Balance -210 / -210 175 / 175 -120 / -120 Intake: Oral 390 / 390 325 / 325 Output: Void Amount 600 / 600 150 / 150 120 / 120 Other: Meal Dinner Breakfast Percent of Meal Consumed 100% 100% Feeding Ability Independent Independent # Voids 1 Weight 165 lb Additional comments: Constitutional; Afebrile, cooperative, alert, not in distress. Eyes- No icterus, , No periorbital swelling Ears- Ext ear normal, hearing normal to conversation. Neck- Midline trachea, supple Respiratory system: Air Entry equal on both sides, No crackles or wheezing, no rhonchi. CVS- Rate rhythm regular, S1,S2 heard, no gallop, no rub. Abdomen- Soft nontender abdomen, no organomegaly, no tenderness, no guarding or rigidity, BRAILLE CODER- AOOx3, moving all extremities, no gross focal deficit noted. Medical - DS: Data Labs on day of discharge: Labs from last 24 hours 01/14/18 01/14/18 04:29 04:29 WBC 13.3 H RBC 3.98 L Hgb 11.2 L Hct 34.3 L MCV 86.2 MCH 28.3 MCHC 32.8 RDW 15.2 H Plt Count 302 MPV 9.1 Gran % 53.4 Lymph % (Auto) 31.0 Pershing % (Auto) 9.5 Eos % (Auto) 5.6 Baso % (Auto) 0.5 Gran # 7.1 Lymph # (Auto) 4.1 Pershing # (Auto) 1.3 H Eos # (Auto) 0.7 Baso # (Auto) 0.1 Sodium 143 Potassium 3.5 Chloride 106 Carbon Dioxide 23 Anion Gap 14.0 BUN 12 Creatinine 0.7 GFR Calculation 85 Glucose 85 Uric Acid 5.3 Calcium 8.6 Phosphorus 4.4 Magnesium 1.8 Total Bilirubin < 0.2 Direct Bilirubin < 0.2 GGT 27 AST 11 ALT 6 Alkaline Phosphatase 54 Lactate Dehydrogenase 214 Total Protein 5.7 L Albumin 2.7 L Globulin 3.0 Albumin/Globulin Ratio 0.9 L Triglycerides 160 H Medical - DS: A/P - Patient/Caregiver Discharge Instructions Activity: increase activity as tolerated Diet: Regular Diet Additional Instructions: Follow up with PCP in 1 week Go to the ER if worsening cough, fever, shortness of breath, diarrhea or any other concerning symptom OT/PT eval at rehab center Prescriptions: HYDROcodone/APAP 10/325MG [Preston 10-325Mg] 1 tab PO Q6HP PRN #30 tab PRN Reason: Pain - Follow up Plan Follow up with: Liyah Rey MD [Primary Care Provider] - Disposition: Xfer SNF Prognosis: Fair Rehab Potential: Fair I certify that the patient requires SNF services: Yes Overall status at discharge: patient is progressing back to baseline
--- NOTE | 2018-01-14 11:31 | Internal Med Progress Note ---
Medical - PN: Subj Patient information: Note initiated : 01/14/18 at 11:26 am Service Date, if different from initiated Date: [] Patient: Michael Hammond 77 y/o F admitted on 01/07/18 for Diarrhea/C Diff. Chief Complaint: [] Interval history: Patient doing much better. Denies any diarrhea, shortness of breath, cough, chest pain, fever, nausea, vomiting, cough. Says she is ready to go to rehab. - Constitutional Vitals: Vital Signs Temp Pulse Resp BP Pulse Ox 36.6 C 56 L 16 127/66 95 01/14/18 07:09 01/14/18 08:10 01/14/18 08:10 01/14/18 07:09 01/14/18 08:10 Period Temp Pulse Resp BP Sys/Underwood Pulse Ox Last 24 Hr 36.3 C-36.9 C 53-69 12- 95-127/56-75 93-95 Intake and Output 01/13/18 01/14/18 01/14/18 21:59 05:59 13:59 Intake Total 390 / 390 325 / 325 Output Total 600 / 600 150 / 150 120 / 120 Balance -210 / -210 175 / 175 -120 / -120 Weight 74.843 kg Intake & Output: Intake & Output 01/13/18 01/14/18 01/14/18 21:59 05:59 13:59 Intake Total 390 / 390 325 / 325 Output Total 600 / 600 150 / 150 120 / 120 Balance -210 / -210 175 / 175 -120 / -120 Weight 74.843 kg Intake: Oral 390 / 390 325 / 325 Output: Void Amount 600 / 600 150 / 150 120 / 120 Other: Meal Dinner Breakfast Percent of Meal Consumed 100% 100% Feeding Ability Independent Independent # Voids 1 General appearance: no acute distress, obese - GI/Abdominal GI/Abdominal exam: Present: normal bowel sounds, soft, distended. Absent: guarding, tenderness Medical - PN: Obj Da - Labs CBC & Chem 7: 01/14/18 04:29 01/14/18 04:29 Labs: Abnormal Lab Results 01/14/18 01/14/18 01/13/18 04:29 04:29 04:29 WBC 13.3 H RBC 3.98 L Hgb 11.2 L Hct 34.3 L RDW 15.2 H Gran # Schley # (Auto) 1.3 H Eos # (Auto) Carbon Dioxide 20 L Glucose Lactate Dehydrogenase Total Protein 5.7 L Albumin 2.7 L 2.8 L Albumin/Globulin Ratio 0.9 L 0.9 L Triglycerides 160 H 01/13/18 01/12/18 01/12/18 04:29 03:54 03:54 WBC 16.0 H 18.1 H RBC Hgb 11.9 L Hct RDW 15.2 H 15.5 H Gran # 11.3 H 11.7 H Schley # (Auto) 1.2 H 1.6 H Eos # (Auto) 0.8 H Carbon Dioxide Glucose 67 L Lactate Dehydrogenase 264 H Total Protein Albumin 2.9 L Albumin/Globulin Ratio 0.9 L Triglycerides 156 H Meds: Medications Hydrocodone Bitart/Acetaminophen ([place] 10/325mg) 1 tab PO Q4-6HP PRN PRN Reason: PAIN LEVEL 3-6 Last Admin: 01/14/18 03:24 Dose: 1 tab Ascorbic Acid (Vitamin C) 500 mg PO DAILY [facility] Last Admin: 01/14/18 08:12 Dose: 500 mg Aspirin (Aspirin) 81 mg PO BID [facility] Last Admin: 01/14/18 08:12 Dose: 81 mg Dicyclomine HCl (Dicyclomine) 20 mg PO QID [facility] Last Admin: 01/14/18 08:12 Dose: 20 mg Famotidine (Pepcid) 20 mg PO QDAY [facility] Last Admin: 01/14/18 08:12 Dose: 20 mg Fish Oil (Fish Oil) 1,000 mg PO DAILY [facility] Last Admin: 01/14/18 08:12 Dose: 1,000 mg Gabapentin (Neurontin) 300 mg PO QHS [facility] Last Admin: 01/13/18 20:45 Dose: 300 mg Isosorbide Mononitrate (Imdur) 30 mg PO DAILY [facility] Last Admin: 01/14/18 08:12 Dose: 30 mg Meclizine HCl (Antivert) 12.5 mg PO QIDP PRN PRN Reason: Nausea Nystatin (Nystatin) 500,000 units SSW QID [facility] Last Admin: 01/14/18 08:12 Dose: 500,000 units Omeprazole (Prilosec) 20 mg PO BIDAC [facility] Last Admin: 01/14/18 08:12 Dose: 20 mg Ondansetron HCl (Zofran) 4 mg IV Q4HP PRN PRN Reason: Nausea And Vomiting Last Admin: 01/10/18 13:06 Dose: 4 mg Propranolol HCl (Inderal La) 60 mg PO QDAY [facility] Last Admin: 01/14/18 08:12 Dose: 60 mg Sodium Chloride (Saline Flush) 10 ml IV Q8 [facility] Last Admin: 01/14/18 06:08 Dose: 10 ml Throat Lozenges (Cepacol) 1 lozenge PO PRN PRN PRN Reason: Sore Throat Last Admin: 01/14/18 00:50 Dose: 1 lozenge Topiramate (Topamax) 100 mg PO BID [facility] Last Admin: 01/14/18 08:12 Dose: 100 mg Verapamil HCl (Calan) 80 mg PO HS [facility] Last Admin: 01/13/18 20:45 Dose: 80 mg Vitamin D (Vitamin D3) 5,000 unit PO QDAY [facility] Last Admin: 01/14/18 08:12 Dose: 5,000 unit Medical - PN: A/P - Time Spent With Patient Total time spent is greater than 50% in coordination of care (as documented) at patient's floor/unit and/or counseling patient: less than 15 minutes - Narrative A/P Narrative: Assessment: 1. Recurrent C. difficile infection:mild and uncomplicated, recovering -Almost always precipitated by systemic antibiotics - s/p stool transplant [colonoscopy] on 01/12 and 7 days of dual therapy with oral vancomycin and IV metronidazole 2. No sepsis 3. Leukocytosis: Downtrending, almost near ULN Recommendations: -No antibiotic recommendations -Patient okay to be discharged from infectious disease standpoint. No ID follow-up needed -Patient was counseled that she is at higher risk for recurrence of C. difficile infection Juan Leigh MD Infectious diseases
== END 2018-01-14 13:17 | DRG 372 ==
LOC: ED 20:43 → MEDSUR 01-07 00:57
PROVIDERS: ADMIT Internal Medicine; ATTEND Internal Medicine